=== PATIENT | female | born 1960 | race Caucasian/White ===

== ENCOUNTER 2016-06-16 10:11 | Inpatient (IN) | payer MEDICARE, MEDICAID ==
[2016-06-16] MEDS ORDERED: IPRATROPIUM/ALBUTEROL (0.5MG/3MG) NEB INH ONE (10:41)
--- NOTE | 2016-06-16 10:46 | Emergency Department Record ---
History of Present Illness - General Chief Complaint: Shortness of breath Stated Complaint: WHEEZY/COUGHING/FEVER Time Seen by Provider: 06/16/16 10:36 Source: Patient, RN notes reviewed Mode of Arrival: Wheelchair - History of Present Illness Initial Comments: patient states tuesday SOB and congestion and this started 4 days ago. Patient uses home oxygen 2 liters per minute. Yellow sputum. Patient states it hurts to cough. MD Complaint: Cough, Shortness of breath Onset/Timin -: Week(s) Severity: Severe Severity scale (1-10): 9 Consistency: Constant Improves With: Nothing Worsens With: Exertion, Lying flat Known History Of: COPD Context: Recent illness, Recent URI Associated Symptoms: Chest pain, Cough, Orthopnia, Pain with inspiration, Sputum production Treatments Prior to Arrival: None - Related Data Home Oxygen Therapy: Yes Home Oxygen Amount: 2 Liters Home Medications Medication Instructions Recorded Confirmed Last Taken Budesonide/Formoterol Fumarate 2 puff PO BID 12/13/13 06/16/16 02/17/15 [Symbicort 160-4.5 Mcg Inhaler] Roflumilast [Daliresp] 500 mcg PO DAILY 12/13/13 06/16/16 02/17/15 Albuterol Sulfate [Ventolin Hfa] 1 - 2 puff IH .EVERY 4-6 HOURS PRN 04/29/1412/2302/17/15 Beclomethasone Dipropionate [Qvar] 2 puff IH BID 04/29/14 06/16/16 02/17/15 Tiotropium Dana [Spiriva 1 inh IH DAILY 11/19/15 06/16/16 Unknown Respimat] Fluoxetine HCl [Fluoxetine HCl] 40 mg PO DAILY 06/16/16 06/16/16 Unknown Hydroxyzine Pamoate 25 mg PO DAILY 06/16/16 06/16/16 Unknown Previous Rx's Medication Instructions Recorded Epinephrine [Epipen] 0.3 mg IM .NOW PRN #1 syr 02/05/15 Allergies Allergy/AdvReac Type Severity Reaction Status Date / Time Sulfa (Sulfonamide Allergy Intermediate HIVES Verified 11/21/15 09:53 Antibiotics) codeine Allergy Mild VOMITING Verified 11/21/15 09:53 morphine Allergy Mild VOMITING Verified 11/21/15 09:53 aspirin [ASPIRIN] Allergy Unknown GI UPSET Verified 11/21/15 09:53 cephalexin monohydrate Allergy Unknown "BLEEDING Verified 11/21/15 09:53 [From KEFLEX] FROM EARS AND NOSE" Travel Screening - Travel/Exposure Within Last 30 Days Have you traveled within the last 30 days?: No Review of Systems Reviewed: No additional complaints except as noted below Constitutional: Reports: As per HPI. Denies: Chills, Fever, Malaise, Night sweats, Weakness, Weight change Eyes: Reports: As per HPI. Denies: Eye discharge, Eye pain, Photophobia, Vision change ENT: Reports: As per HPI. Denies: Congestion, Dental pain, Ear pain, Epistaxis , Hearing loss, Throat pain Respiratory: Reports: As per HPI, Cough, Dyspnea. Denies: Hemoptysis, Stridor, Wheezes Cardiovascular: Reports: As per HPI. Denies: Arrhythmia, Chest pain, Dyspnea on exertion, Edema, Murmurs, Orthopnea, Palpitations, Paroxysmal nocturnal dyspnea, Rheumatic Fever, Syncope Endocrine: Reports: As per HPI. Denies: Fatigue, Heat or cold intolerance, Polydipsia, Polyuria Gastrointestinal: Reports: As per HPI. Denies: Abdominal pain, Constipation, Diarrhea, Hematemesis, Hematochezia, Melena, Nausea, Vomiting Genitourinary: Reports: As per HPI. Denies: Abnormal menses, Discharge, Dyspareunia, Dysuria, Frequency, Hematuria, Incontinence, Retention, Urgency Musculoskeletal: Reports: As per HPI. Denies: Arthralgia, Back pain, Gout, Joint swelling, Myalgia, Neck pain Skin: Reports: As per HPI. Denies: Bruising, Change in color, Change in hair/ nails, Lesions, Pruritus, Rash Neurological: Reports: As per HPI. Denies: Abnormal gait, Confusion, Headache, Numbness, Paresthesias, Seizure, Tingling, Tremors, Vertigo, Weakness Psychiatric: Reports: As per HPI. Denies: Anxiety, Auditory hallucinations, Depression, Homicidal thoughts, Suicidal thoughts, Visual hallucinations Hematological/Lymphatic: Reports: As per HPI. Denies: Anemia, Blood Clots, Easy bleeding, Easy bruising, Swollen glands Past Medical History - SOCIAL HISTORY Smoking Status: Former smoker Alcohol Use: None Drug Use: None - RESPIRATORY Hx Respiratory Disorders: Yes Hx COPD: Yes - CARDIOVASCULAR Hx Cardio Disorders: No Comment:: "HIGH HEART RATE" - NEURO Hx Neuro Disorders: No - GI Hx GI Disorders: Yes Hx Reflux: Yes - Hx Genitourinary Disorders: No - ENDOCRINE Hx Endocrine Disorders: Yes Hx Diabetes: Yes - MUSCULOSKELETAL Hx Musculoskeletal Disorders: Yes Hx Arthritis: Yes (OSTEOARTHRITIS) Hx Fibromyalgia: Yes - PSYCH Hx Psych Problems: Yes Hx Anxiety: Yes Hx Depression: Yes - HEMATOLOGY/ONCOLOGY Hx Hematology/Oncology Disorders: No Family Medical History Any Significant Family History?: Yes Hx Cancer: Father, Grandparents *Cancer Comment: BONE CANCER WITH GRANDFATHER, LUNG CA WITH FATHER Physical Exam - General General Appearance: Alert, Oriented x3, Cooperative, Mild distress - Head Head exam: Normal inspection - Eye Eye exam: Normal appearance, PERRL Pupils: Normal accommodation - ENT ENT exam: Normal exam, Mucous membranes moist, Normal external ear exam, Normal orophraynx, TM's normal bilaterally Ear exam: Normal external inspection. negative: External canal tenderness Nasal Exam: Normal inspection. negative: Discharge, Sinus tenderness Mouth exam: Normal external inspection, Tongue normal Teeth exam: Normal inspection. negative: Dental caries Throat exam: Normal inspection. negative: Tonsillar erythema, Tonsillar exudate - Neck Neck exam: Normal inspection, Full ROM. negative: Tenderness - Respiratory Respiratory exam: Normal lung sounds bilaterally. negative: Respiratory distress - Cardiovascular Cardiovascular Exam: Regular rate, Normal rhythm, Normal heart sounds - GI/Abdominal GI/Abdominal exam: Soft, Normal bowel sounds. negative: Tenderness - Rectal Rectal exam: Deferred - exam: Deferred - Extremities Extremities exam: Normal inspection, Full ROM, Normal capillary refill. negative: Tenderness - Back Back exam: Reports: Normal inspection, Full ROM. Denies: Muscle spasm, Rash noted, Tenderness - Neurological Neurological exam: Alert, Normal gait, Oriented X3, Reflexes normal - Psychiatric Psychiatric exam: Normal affect, Normal mood - Skin Skin exam: Dry, Intact, Normal color, Warm Course Vital Signs 06/16/16 10:16 Temperature 98.0 F Pulse Rate 78 Respiratory 22 Rate Blood Pressure 131/77 Pulse Ox 96 - Reevaluation(s) Reevaluation #1: patient still sob and 3 word speech dyspnea and coughing 06/16/16 14:05 Reevaluation #2: 06/16/16 14:08 Reevaluation #3: discussed case with Fatmata and will admit 06/16/16 14:11 Medical Decision Making - Data Complexity MDM Data: Labs Ordered and/or Reviewed, X-Ray Ordered and/or Reviewed (chest xray neg) - Lab Data Result diagrams: 06/16/16 10:40 06/16/16 10:40 Disposition Clinical Impression: COPD with exacerbation, Bronchitis Decision to Admit: Admit from ER Condition: (2) Stable Forms: Patient Portal Access
[2016-06-16] MEDS ORDERED: 0.9 % SODIUM CHLORIDE 1000ML 1,000 ML IV ONE (10:48)
[2016-06-16] MEDS ORDERED: METHYLPREDNISOLONE PF 125MG/VIAL IVP ONE (10:53)
[2016-06-16 10:58] LABS: HEMATOCRIT 35.1 % (35.0-47.0); HEMOGLOBIN 10.6 gm/dl (11.6-16.0); MEAN CELL VOLUME 62.1 fl (81-97); MEAN CORPUSCULAR HGB CONC 30.2 g/dl (32-36); MEAN PLATELET VOLUME 8.9 fl (7.4-10.4); PLATELET COUNT 450 K/uL (130-400); RED BLOOD COUNT 5.65 M/uL (3.80-5.40); RED CELL DISTRIBUTION WIDTH 23.9 % (11.5-14.5)
[2016-06-16 11:06] LABS: MEAN CORPUSCULAR HEMOGLOBIN 18.7 pg (27-33); PLATELET ESTIMATE NORMAL (NORMAL)
[2016-06-16 11:07] LABS: ANISOCYTOSIS 2+; MICROCYTOSIS 1+
[2016-06-16 11:15] LABS: ANION GAP 13.6 (7-16); BLOOD UREA NITROGEN 11 mg/dL (7-17); CARBON DIOXIDE 25.4 mmol/L (22-30); CREATININE 0.7 mg/dL (0.52-1.04); EST GLOMERULAR FILTRATION RATE > 60 ml/min; GLUCOSE,RANDOM 93 mg/dL (70-110)
[2016-06-16] MEDS ORDERED: ALBUTEROL SULFATE (0.083%) 2.5 MG/3 ML NEB INH ONE (12:50)
[2016-06-16] MEDS ORDERED: AZITHROMYCIN 500 MG in 0.9 % SODIUM CHLORIDE 250ML 250 ML IVPB SCH (15:28)
[2016-06-16] MEDS ORDERED: ALBUTEROL SULFATE (0.083%) 2.5 MG/3 ML NEB INH PRN (15:28)
[2016-06-16] MEDS ORDERED: TRAMADOL HCL 50 MG TABLET PO PRN (16:00)
[2016-06-16] MEDS: ACETAMINOPHEN 500 MG TABLET PO SCH ×2 (16:35→22:30)
[2016-06-16] MEDS: GABAPENTIN 300 MG CAPSULE PO SCH ×2 (16:36→22:34)
[2016-06-16] MEDS: DICYCLOMINE HCL 10 MG CAPSULE PO SCH ×2 (16:36→22:32)
[2016-06-16] MEDS: PANTOPRAZOLE SODIUM 40 MG TABLET PO SCH (16:37)
[2016-06-16] MEDS: HYDROXYZINE PAMOATE 25 MG CAPSULE PO SCH ×3 (16:38→22:36)
[2016-06-16] MEDS: SUCRALFATE 1 G/10 ML UD PO SCH ×3 (16:39→22:32)
[2016-06-16] MEDS ORDERED: ONDANSETRON HCL IV 4 MG/2 ML VIAL IVP PRN (16:51)
--- NOTE | 2016-06-16 17:23 | History & Physical ---
History of Present Illness - Date of Service Date of Service for History & Physical: 06/17/16 - History of Present Illness Admitting Diagnosis: acute bronchitis. COPD exacerbation. hypoxia History of Present Illness: 55 yo female admitted for COPD exacerbation. PMHx of smoking (quit 8-9 years ago; uses 2 L's of NC 29/11), COPD (Follows with Dr. Mariee in [place]), IDDM, depression, anxiety, arthritis, neuropathy, fibromyalgia, obesity and tachycardia. Initially, patient was treated with Levaquin and steroids as outpatient for COPD with acute exacerbation on 05/27/16. Her CXR 05/27 was negative for acute process. Patient presented to our ER today after 4-5 days of worsening cough. Her cough is described as non productive. She states she's not able to bring up sputum. Aggravated by exertion and recent URI. Alleviated with IV steroid and a breathing treatment in the ER. Associated symptoms include n/v, diarrhea , sob, fever, chills and decreased appetite. Upon presentation to the ED, VSS. CBC and CMP unremarkable. CXR: negative. Patient started on IV steroids, 500 mg of IV Azithromycin, and Duo neb treatments Q 4 hours. Patient placed on telemetry and admitted for further medical management. Patient has a 20 year h/o smoking. She follows with extrusion operator, Dr. Mariee. Requires 2 L's of supplemental oxygen 29/11. Patient states she was admitted for similar upper respiratory symptoms this past summer. She denies any recent travel, changes to her medications or sick contacts. Denies hemoptysis, CP, lightheadedness, weakness, abdominal pain, change in bowel habits, unintentional weight loss, or dysuria. 06/17/16:lying in bed comfortably. states she feels much better than yesterday. ambulating her room. tolerated breakfast though not much of an appetite. felt feverish last night, though this has resolved. diarrhea, n/v resolved. denies any abdominal pain. continues to cough, no sputum production. no fever, chills , hemoptysis, weakness. PCP: Dr. Jordan Travel Screening - Travel/Exposure Within Last 30 Days Have you traveled within the last 30 days?: No - Travel/Exposure Within Last Year Have you traveled outside the [place] in the last year?: No - Additonal Travel Details Have you been exposed to anyone with a communicable illness?: No - Travel Symptoms Symptom Screening: None Review of Systems Constitutional: Reports: As per HPI. Denies: Chills, Fever, Malaise, Night sweats, Weakness, Weight change Eyes: Reports: As per HPI. Denies: Eye discharge, Eye pain, Photophobia, Vision change ENT: Reports: As per HPI. Denies: Congestion, Dental pain, Ear pain, Epistaxis , Hearing loss, Throat pain Respiratory: Reports: As per HPI. Denies: Cough, Dyspnea, Hemoptysis, Stridor, Wheezes Cardiovascular: Reports: As per HPI. Denies: Arrhythmia, Chest pain, Dyspnea on exertion, Edema, Murmurs, Orthopnea, Palpitations, Paroxysmal nocturnal dyspnea, Rheumatic Fever, Syncope Endocrine: Reports: As per HPI. Denies: Fatigue, Heat or cold intolerance, Polydipsia, Polyuria Gastrointestinal: Reports: As per HPI. Denies: Abdominal pain, Constipation, Diarrhea, Hematemesis, Hematochezia, Melena, Nausea, Vomiting Genitourinary: Reports: As per HPI. Denies: Abnormal menses, Discharge, Dyspareunia, Dysuria, Frequency, Hematuria, Incontinence, Retention, Urgency Musculoskeletal: Reports: As per HPI. Denies: Arthralgia, Back pain, Gout, Joint swelling, Myalgia, Neck pain Skin: Reports: As per HPI. Denies: Bruising, Change in color, Change in hair/ nails, Lesions, Pruritus, Rash Neurological: Reports: As per HPI. Denies: Abnormal gait, Confusion, Headache, Numbness, Paresthesias, Seizure, Tingling, Tremors, Vertigo, Weakness Psychiatric: Reports: As per HPI. Denies: Anxiety, Auditory hallucinations, Depression, Homicidal thoughts, Suicidal thoughts, Visual hallucinations Hematological/Lymphatic: Reports: As per HPI. Denies: Anemia, Blood Clots, Easy bleeding, Easy bruising, Swollen glands Past Medical History - SOCIAL HISTORY Smoking Status: Former smoker Alcohol Use: None Drug Use: None - RESPIRATORY Hx Respiratory Disorders: Yes Hx COPD: Yes - CARDIOVASCULAR Hx Cardio Disorders: No Comment:: "HIGH HEART RATE" - NEURO Hx Neuro Disorders: No - GI Hx GI Disorders: Yes Hx Reflux: Yes - Hx Genitourinary Disorders: No - ENDOCRINE Hx Endocrine Disorders: Yes Hx Diabetes: Yes - MUSCULOSKELETAL Hx Musculoskeletal Disorders: Yes Hx Arthritis: Yes (OSTEOARTHRITIS) Hx Fibromyalgia: Yes - PSYCH Hx Psych Problems: Yes Hx Anxiety: Yes Hx Depression: Yes - HEMATOLOGY/ONCOLOGY Hx Hematology/Oncology Disorders: No Family Medical History Any Significant Family History?: Yes Hx Cancer: Father, Grandparents *Cancer Comment: BONE CANCER WITH GRANDFATHER, LUNG CA WITH FATHER H&P Meds/Allergies - Allergies Allergies: Allergies Allergy/AdvReac Type Severity Reaction Status Date / Time Sulfa (Sulfonamide Allergy Intermediate HIVES Verified 11/21/15 09:53 Antibiotics) codeine Allergy Mild VOMITING Verified 11/21/15 09:53 morphine Allergy Mild VOMITING Verified 11/21/15 09:53 aspirin [ASPIRIN] Allergy Unknown GI UPSET Verified 11/21/15 09:53 cephalexin monohydrate Allergy Unknown "BLEEDING Verified 11/21/15 09:53 [From KEFLEX] FROM EARS AND NOSE" strawberry Allergy DIFFICULTY Verified 06/16/16 16:41 BREATHING venom-honey bee Allergy ANAPHYLAXIS Verified 06/16/16 16:41 venom-wasp Allergy ANAPHYLAXIS Verified 06/16/16 16:41 - Home Medications Home Medications Medication Instructions Recorded Confirmed Last Taken Budesonide/Formoterol Fumarate 2 puff PO BID 12/13/13 06/16/16 02/17/15 [Symbicort 160-4.5 Mcg Inhaler] Roflumilast [Daliresp] 500 mcg PO DAILY 12/13/13 06/16/16 02/17/15 Albuterol Sulfate [Ventolin Hfa] 1 - 2 puff IH .EVERY 4-6 HOURS PRN 04/29/1412/2302/17/15 Beclomethasone Dipropionate [Qvar] 2 puff IH BID 04/29/14 06/16/16 02/17/15 Tiotropium [place] [Spiriva 1 inh IH DAILY 11/19/15 06/16/16 Unknown Respimat] Dicyclomine HCl 20 mg PO QIDACHS 06/16/16 06/16/16 Unknown Diphenhydramine HCl [Benadryl] 25 mg PO QHS 06/16/16 06/16/16 Unknown Fluoxetine HCl [Fluoxetine HCl] 40 mg PO QHS 06/16/16 06/16/16 Unknown Hydroxyzine Pamoate 25 mg PO QID 06/16/16 06/16/16 Unknown Loratadine [Claritin] 10 mg PO QHS 06/16/16 06/16/16 Unknown Omeprazole [Omeprazole] 40 mg PO BIDAC 06/16/16 06/16/16 Unknown Verapamil HCl [Verapamil Sr] 120 mg PO QHS 06/16/16 06/16/16 Unknown Previous Rx's Medication Instructions Recorded Epinephrine [Epipen] 0.3 mg IM .NOW PRN #1 syr 02/05/15 - Active Medications Active Medications: Current Medications Acetaminophen (Tylenol 500mg Tab) 1,000 mg PO Q6H [facility] Last Admin: 06/16/16 16:35 Dose: 1,000 mg Albuterol Sulfate () 2.5 mg INH RESP.Q1H PRN PRN Reason: DIFFICULTY IN BREATHING Albuterol/Ipratropium (Duoneb) 3 ml INH RESP.Q4H.[facility] Dicyclomine HCl (Bentyl) 20 mg PO QIDACHS [facility] Last Admin: 06/16/16 16:36 Dose: 20 mg Diphenhydramine HCl (Benadryl Capsule) 25 mg PO QHS [facility] Enoxaparin Sodium (Lovenox) 40 mg SQ DAILY [facility] Fluoxetine HCl (Prozac) 40 mg PO QHS [facility] Gabapentin (Neurontin) 600 mg PO TID [facility] Last Admin: 06/16/16 16:36 Dose: 600 mg Guaifenesin (Mucinex) 1,200 mg PO BID [facility] Hydroxyzine Pamoate (Vistaril) 25 mg PO QID [facility] Last Admin: 06/16/16 16:38 Dose: 25 mg Azithromycin 500 mg/ Sodium (Chloride) 250 mls @ 250 mls/hr IVPB Q24H [facility] Stop: 06/21/16 15:29 Last Admin: 06/16/16 16:33 Dose: 250 mls/hr Insulin Detemir (Levemir Flextouch) 5 unit SQ QHS [facility] Loratadine (Claritin) 10 mg PO QHS [facility] Meloxicam (Mobic) 7.5 mg PO BID [facility] Methylprednisolone Sodium Succinate (Solu-Medrol) 60 mg IVP Q8HR [facility] Montelukast Sodium (Singulair) 10 mg PO DAILY [facility] Ondansetron HCl (Zofran) 4 mg IVP Q6H PRN PRN Reason: NAUSEA Last Admin: 06/16/16 17:01 Dose: 4 mg Pantoprazole Sodium (Protonix) 40 mg PO BIDAC [facility] Last Admin: 06/16/16 16:37 Dose: 40 mg Patient Own Med: Roflumilast ( Daliresp) 500 Mcg 1 each PO DAILY [facility] Patient Own Med: (Terbinafine 250 Mg) 1 each PO DAILY [facility] Simvastatin (Zocor) 10 mg PO QHS [facility] Sucralfate (Carafate) 1 g PO QID [facility] Last Admin: 06/16/16 17:09 Dose: Not Given Tramadol HCl (Ultram) 50 mg PO Q4H PRN PRN Reason: Analgesia Trazodone HCl (Desyrel) 150 mg PO QHS [facility] Verapamil HCl (Calan Sr) 120 mg PO QHS [facility] Physical Exam - Vital Signs Vital Signs: Vital Signs - Last 24 Hrs Temp Pulse Pulse Resp BP BP Pulse Ox 06/16/16 15:38 98.5 F 66 23 120/59 97 06/16/16 15:34 98.5 F 66 16 126/80 97 - General General Appearance: Alert, Oriented x3, Cooperative, No acute distress - Head Head exam: Normal inspection - Eye Eye exam: Normal appearance, PERRL Pupils: Normal accommodation - ENT ENT exam: Normal exam, Mucous membranes moist, Normal external ear exam, Normal orophraynx, TM's normal bilaterally Ear exam: Normal external inspection. negative: External canal tenderness Nasal Exam: Normal inspection. negative: Discharge, Sinus tenderness Mouth exam: Normal external inspection, Tongue normal Teeth exam: Normal inspection. negative: Dental caries Throat exam: Normal inspection. negative: Tonsillar erythema, Tonsillar exudate - Neck Neck exam: Normal inspection, Full ROM. negative: Tenderness - Respiratory Respiratory exam: Normal lung sounds bilaterally. negative: Respiratory distress - Cardiovascular Cardiovascular Exam: Regular rate, Normal rhythm, Normal heart sounds - GI/Abdominal GI/Abdominal exam: Soft, Normal bowel sounds. negative: Tenderness - Rectal Rectal exam: Deferred - exam: Deferred - Extremities Extremities exam: Normal inspection, Full ROM, Normal capillary refill. negative: Tenderness - Back Back exam: Reports: Normal inspection, Full ROM. Denies: Muscle spasm, Rash noted, Tenderness - Neurological Neurological exam: Alert, Normal gait, Oriented X3, Reflexes normal - Psychiatric Psychiatric exam: Normal affect, Normal mood - Skin Skin exam: Dry, Intact, Normal color, Warm Results - Labs Result Diagrams: 06/16/16 10:40 06/16/16 10:40 VTE H&P Assessment - Risk for VTE Risk for VTE: Yes Risk Level: Moderate Risk Assessment Date: 06/16/16 Risk Assessment Time: 16:00 VTE Orders Placed or Will Be Placed: Yes Plan - Inpatient Certification Inpatient Certification: Admit to inpatient care: Based on my medical assessment, after consideration of patient's risk factors (age, co-morbidities and patient presenting symptoms and acuity), I expect that this patient will remain in the hospital greater than or equal to two midnights and that the services needed warrant inpatient care because: Patient Risk Factors: [] Estimated length of stay: [] The patient may reasonably be expected to be discharged or transferred to a hospital within 96 hours after admission to [facility]. Services needed: [] Post hospital care (if known): [] I certify that my determination is in accordance with my understanding of Medicare requirements for reasonable and necessary inpatient services. - Detailed Diagnosis and Plan (1) COPD with exacerbation Current Visit: Yes Status: Acute Base Code: J44.1 - CHRONIC OBSTRUCTIVE PULMONARY DISEASE W (ACUTE) EXACERBATION Comment: 06/17/16: 56 yo female w/ history of COPD failed outpatient treatment for acute exacerbation. -CXR negative. -wbc normal, afebrile -continue IV solumedrol, Azithromycin -Duo neb treatment [id number] -mucinex 1200 mg BID -add tessalon perles -will monitor VS's closely (2) DVT prophylaxis Current Visit: No Status: Acute Base Code: [id number] - Comment: 06/17/16: moderate risk: weight, decreased mobility. lovenox 40 mg sq daily. (3) Diabetes mellitus type 2, insulin dependent Current Visit: No Status: Acute Base Code: E11.9 - TYPE 2 DIABETES MELLITUS WITHOUT COMPLICATIONS; Z79.4 - GIS CONSULTANT (CURRENT) USE OF INSULIN Comment: 06/17/16: Patient currently on Levemir 5units QHS - Patient will continue home medication - accu checks achqhs (4) Full code status Current Visit: No Status: Acute Base Code: Z78.9 - OTHER SPECIFIED HEALTH STATUS Comment: 06/17/16: Patient remains full code
[2016-06-16] MEDS: IPRATROPIUM/ALBUTEROL (0.5MG/3MG) NEB INH SCH ×2 (18:10→22:21)
[2016-06-16] MEDS: GUAIFENESIN 1,200 MG TABLET PO SCH ×2 (18:16→22:33)
[2016-06-16] MEDS ORDERED: LEVEMIR FLEXTOUCH 100 UNIT/ML INSULIN PEN SQ SCH (22:00)
[2016-06-16] MEDS ORDERED: TRAZODONE 50 MG TABLET PO SCH (22:00)
[2016-06-16] MEDS ORDERED: FLUOXETINE HCL 20 MG CAPSULE PO SCH (22:00)
[2016-06-16] MEDS ORDERED: SIMVASTATIN 10MG TABLET PO SCH (22:00)
[2016-06-16] MEDS ORDERED: VERAPAMIL ER 120 MG TABLET PO SCH (22:00)
[2016-06-16] MEDS ORDERED: LORATADINE 10 MG TABLET PO SCH (22:00)
[2016-06-16] MEDS ORDERED: DIPHENHYDRAMINE HCL 25 MG CAPSULE PO SCH (22:00)
[2016-06-16] MEDS: MELOXICAM 7.5 MG TABLET PO SCH (22:33)
[2016-06-16] MEDS: METHYLPREDNISOLONE PF 125MG/VIAL IVP SCH (22:34)
[2016-06-17] MEDS: ACETAMINOPHEN 500 MG TABLET PO SCH ×2 (04:09→09:33)
[2016-06-17] MEDS: IPRATROPIUM/ALBUTEROL (0.5MG/3MG) NEB INH SCH ×2 (05:56→10:14)
[2016-06-17] MEDS: DICYCLOMINE HCL 10 MG CAPSULE PO SCH ×2 (06:58→12:04)
[2016-06-17] MEDS: PANTOPRAZOLE SODIUM 40 MG TABLET PO SCH (06:58)
[2016-06-17] MEDS: METHYLPREDNISOLONE PF 125MG/VIAL IVP SCH (06:59)
--- NOTE | 2016-06-17 07:25 | RADIOLOGY REPORT ---
EXAM: CHEST, TWO VIEWS HISTORY: COUGH. TECHNIQUE: Frontal and lateral views of the chest were obtained. Comparison: 05/27/16 chest. FINDINGS: The heart size is normal. The lungs are clear. No pneumothorax. IMPRESSION: NEGATIVE CHEST EXAMINATION. JOB NUMBER: [id number]
[2016-06-17] MEDS: SUCRALFATE 1 G/10 ML UD PO SCH (09:33)
[2016-06-17] MEDS: GABAPENTIN 300 MG CAPSULE PO SCH (09:34)
[2016-06-17] MEDS: MELOXICAM 7.5 MG TABLET PO SCH (09:34)
[2016-06-17] MEDS: GUAIFENESIN 1,200 MG TABLET PO SCH (09:35)
[2016-06-17] MEDS: HYDROXYZINE PAMOATE 25 MG CAPSULE PO SCH (09:36)
[2016-06-17] MEDS ORDERED: ROFLUMILAST 500 MCG PO SCH (10:00)
[2016-06-17] MEDS ORDERED: TERBINAFINE 250 MG PO SCH (10:00)
[2016-06-17] MEDS ORDERED: MONTELUKAST SODIUM 10MG TABLET PO SCH (10:00)
[2016-06-17] MEDS ORDERED: ENOXAPARIN 40 MG/0.4 ML SYR SQ SCH (10:00)
[2016-06-17] MEDS ORDERED: BENZONATATE 100 MG CAPSULE PO PRN (10:20)
--- NOTE | 2016-06-17 10:23 | Discharge Summary ---
Providers Discharge Summary Date: 06/17/16 Date of admission: 06/16/16 15:14 Expected Date of Discharge: 06/17/16 Attending physician: BENNY PETE Primary care physician: BENNY PETE Physical Exam - Vital Signs Vital Signs: Vital Signs - Last 24 Hrs Temp Pulse Pulse Pulse Resp BP BP 06/17/16 09:34 97.8 F 71 20 133/69 06/17/16 09:28 98.6 F 129/71 06/17/16 08:42 67 20 06/17/16 06:07 88 20 06/17/16 06:06 84 20 06/17/16 05:32 98.6 F 67 21 129/71 06/17/16 01:33 98.4 F 69 21 128/70 06/16/16 22:25 88 20 06/16/16 22:22 90 20 06/16/16 22:00 97.4 F L 71 21 134/81 06/16/16 18:54 16 06/16/16 18:11 85 16 06/16/16 18:00 99.2 F 69 14 103/61 06/16/16 15:38 98.5 F 66 23 120/59 06/16/16 15:34 98.5 F 66 16 126/80 Pulse Ox 06/17/16 09:34 95 06/17/16 09:28 06/17/16 08:42 06/17/16 06:07 06/17/16 06:06 95 06/17/16 05:32 97 06/17/16 01:33 96 06/16/16 22:25 97 06/16/16 22:22 97 06/16/16 22:00 98 06/16/16 18:54 06/16/16 18:11 95 06/16/16 18:00 97 06/16/16 15:38 97 06/16/16 15:34 97 - General General Appearance: Alert, Oriented x3, Cooperative, No acute distress - Head Head exam: Normal inspection - Eye Eye exam: Normal appearance, PERRL Pupils: Normal accommodation - ENT ENT exam: Normal exam, Mucous membranes moist, Normal external ear exam, Normal orophraynx, TM's normal bilaterally Ear exam: Normal external inspection. negative: External canal tenderness Nasal Exam: Normal inspection. negative: Discharge, Sinus tenderness Mouth exam: Normal external inspection, Tongue normal Teeth exam: Normal inspection. negative: Dental caries Throat exam: Normal inspection. negative: Tonsillar erythema, Tonsillar exudate - Neck Neck exam: Normal inspection, Full ROM. negative: Tenderness - Respiratory Respiratory exam: Normal lung sounds bilaterally (breath sounds normalizing). negative: Respiratory distress - Cardiovascular Cardiovascular Exam: Regular rate, Normal rhythm, Normal heart sounds - GI/Abdominal GI/Abdominal exam: Soft, Normal bowel sounds. negative: Tenderness - Rectal Rectal exam: Deferred - exam: Deferred - Extremities Extremities exam: Normal inspection, Full ROM, Normal capillary refill. negative: Tenderness - Back Back exam: Reports: Normal inspection, Full ROM. Denies: Muscle spasm, Rash noted, Tenderness - Neurological Neurological exam: Alert, Normal gait, Oriented X3, Reflexes normal - Psychiatric Psychiatric exam: Normal affect, Normal mood - Skin Skin exam: Dry, Intact, Normal color, Warm Hospitalization - Hospitalization Admission Diagnosis: acute bronchitis. COPD exacerbation. hypoxia - Problem List/Discharge Diagnosis (1) COPD with exacerbation Current Visit: Yes Status: Acute Base Code: J44.1 - CHRONIC OBSTRUCTIVE PULMONARY DISEASE W (ACUTE) EXACERBATION Comment: 06/17/16: 56 yo female w/ history of COPD failed outpatient treatment for acute exacerbation. Per patient, she's feeling back to baseline. -CXR negative. -wbc normal, afebrile -continue steroid taper- script given to patient. -complete Azithromycin (500 mg PO x 4 additional days- sent to pharmacy). Initially sent script for 3 count, however she will not be receiving this prior to d/c. I contact pharmacy and they adjusted pill count to 4. -Duo neb treatment [id number] -mucinex 1200 mg BID -fiona mendes sent to pharmacy to help with cough - follow up with me on 06/24/16 @1500. Return in the meantime regarding any new or worsening symptoms. (2) Diabetes mellitus type 2, insulin dependent Current Visit: No Status: Acute Base Code: E11.9 - TYPE 2 DIABETES MELLITUS WITHOUT COMPLICATIONS; Z79.4 - STRATEGIC PLANNER (CURRENT) USE OF INSULIN Comment: 06/17/16: Continue home medications. (3) DNR (do not resuscitate) Current Visit: Yes Status: Acute Base Code: Z66 - DO NOT RESUSCITATE Comment: 06/17/16: patient made DNR during her stay. - Hospitalization Course Disposition: Home, Self-Care Hospital Course: 55 yo female admitted for COPD exacerbation. PMHx of smoking (quit 8-9 years ago; uses 2 L's of NC 29/11), COPD (Follows with Dr. Mariee in [place]), IDDM, depression, anxiety, arthritis, neuropathy, fibromyalgia, obesity and tachycardia. Initially, patient was treated with Levaquin and steroids as outpatient for COPD with acute exacerbation on 05/27/16. Her CXR 05/27 was negative for acute process. Patient presented to our ER today after 4-5 days of worsening cough. Her cough is described as non productive. She states she's not able to bring up sputum. Aggravated by exertion and recent URI. Alleviated with IV steroid and a breathing treatment in the ER. Associated symptoms include n/v, diarrhea , sob, fever, chills and decreased appetite. Upon presentation to the ED, VSS. CBC and CMP unremarkable. CXR: negative. Patient started on IV steroids, 500 mg of IV Azithromycin, and Duo neb treatments Q 4 hours. Patient placed on telemetry and admitted for further medical management. Patient has a 20 year h/o smoking. She follows with call box wirer, Dr. Mariee. Requires 2 L's of supplemental oxygen 29/11. Patient states she was admitted for similar upper respiratory symptoms this past summer. She denies any recent travel, changes to her medications or sick contacts. Denies hemoptysis, CP, lightheadedness, weakness, abdominal pain, change in bowel habits, unintentional weight loss, or dysuria. 06/17/16:lying in bed comfortably. states she feels much better than yesterday. ambulating her room. tolerated breakfast though not much of an appetite. felt feverish last night, though this has resolved. diarrhea, n/v resolved. denies any abdominal pain. continues to cough, no sputum production. no fever, chills , hemoptysis, weakness. PCP: Dr. Pete Abnormal Labs: Abnormal Lab Results 06/16/16 06/17/16 Range/Units 22:28 07:30 POC Glucose 238 H 137 H (70-110) mg/dL Condition at Discharge: (2) Stable Discharge Medications - Discharge Medications Prescriptions: Azithromycin 500 mg PO DAILY #3 tablet Fluconazole [Diflucan] 150 mg PO ONCE #1 tab Oxymetazoline HCl [Nasal [place] Sinus] 30 ml NS ASDIR PRN #1 bottle PRN Reason: Dry Nasal Pas[place] Prednisone [Prednisone 20Mg] 20 mg PO DAILY #12 tab Benzonatate [Tessalon Perles] 100 mg PO TID PRN #30 capsule PRN Reason: Cough Ondansetron [Zofran Odt] 4 mg PO Q8H PRN #20 tab.rapdis PRN Reason: Nausea Home Medications: Ambulatory Orders Budesonide/Formoterol Fumarate [Symbicort 160-4.5 Mcg Inhaler] 2 puff PO BID 11/19 [Last Taken 02/17/15] Roflumilast [Daliresp] 500 mcg PO DAILY 12/13/13 [Last Taken 02/17/15] Albuterol Sulfate [Ventolin Hfa] 1 - 2 puff IH .EVERY 4-6 HOURS PRN 04/29/14 [ Last Taken 02/17/15] Beclomethasone Dipropionate [Qvar] 2 puff IH BID 04/29/14 [Last Taken 02/17/15] Epinephrine [Epipen] 0.3 mg IM .NOW PRN #1 syr 02/05/15 [Last Taken 02/15/15] Tiotropium [place] [Spiriva Respimat] 1 inh IH DAILY 11/19/15 [Last Taken Unknown] Dicyclomine HCl 20 mg PO QIDACHS 06/16/16 [Last Taken Unknown] Diphenhydramine HCl [Benadryl] 25 mg PO QHS 06/16/16 [Last Taken Unknown] Fluoxetine HCl 40 mg PO QHS 06/16/16 [Last Taken Unknown] Hydroxyzine Pamoate 25 mg PO QID 06/16/16 [Last Taken Unknown] Loratadine [Claritin] 10 mg PO QHS 06/16/16 [Last Taken Unknown] Omeprazole 40 mg PO BIDAC 06/16/16 [Last Taken Unknown] Verapamil HCl [Verapamil Sr] 120 mg PO QHS 06/16/16 [Last Taken Unknown] Azithromycin 500 mg PO DAILY #3 tablet 06/17/16 [Last Taken Unknown] Benzonatate [Tessalon Perles] 100 mg PO TID PRN #30 capsule 06/17/16 [Last Taken Unknown] Fluconazole [Diflucan] 150 mg PO ONCE #1 tab 02/09/17 [Last Taken Unknown] Ondansetron [Zofran Odt] 4 mg PO Q8H PRN #20 tab.rapdis 06/17/16 [Last Taken Unknown] Oxymetazoline HCl [Nasal [place] Sinus] 30 ml NS ASDIR PRN #1 bottle 06/17/16 [ Last Taken Unknown] Prednisone [Prednisone 20Mg] 20 mg PO DAILY #12 tab 06/17/16 [Last Taken Unknown ] Discharge Plan - Discharge Instructions Activity at Discharge: Increase Activity as Tolerated Diet at Discharge: Regular Diet, Diabetic Diet Instructions: Diabetes Mellitus Type 2 in Adults (DC), Acute Bronchitis (DC), Chronic Obstructive Pulmonary Disease (DC) Additional Instructions: -complete steroid taper, then transition back to usual prednisone dose. -complete Azithromycin as prescribed. Diflucan sent to pharm if needed. -Duo neb treatment [id number] -continue your COPD medications as prescribed by Dr. Mariee. -mucinex 1200 mg BID -fiona mendes sent to pharmacy to help with cough - follow up with me on 06/24/16 @1500. Return in the meantime regarding any new or worsening symptoms. 2 Activity: Increase Activity as Tolerated 2 Diet: Diabetic Diet 2 2 2 2
[2016-06-17] MEDS ORDERED: ACETAMINOPHEN 500 MG TABLET PO SCH (18:00)
== END 2016-06-17 14:05 | disposition home or self-care (01) | DRG 192 ==
LOC: ER 10:11 → MEDSURG 15:14
PROVIDERS: ADMIT Family Medicine; ATTEND Family Medicine
DX: J44.1 Chronic obstructive pulmonary disease with (acute) exacerbation (principal); M79.7 Fibromyalgia; E11.9 Type 2 diabetes mellitus without complications; Z78.9 Other specified health status; Z79.4 Long term (current) use of insulin; Z66 Do not resuscitate
CPT/HCPCS: 36416; 71020; 80048; 82948; 85027; 93041; 94640; 94760; 96374; 99220; 99285; J0456; J1650; J2405; J2930; J7050; J7613

== ENCOUNTER 2016-06-24 15:40 | Inpatient (IN) | payer MEDICARE, MEDICAID ==
[2016-06-24] MEDS ORDERED: IPRATROPIUM/ALBUTEROL (0.5MG/3MG) NEB INH ONE (16:24)
[2016-06-24] MEDS ORDERED: METHYLPREDNISOLONE PF 125MG/VIAL IVP ONE (16:24)
[2016-06-24 16:48] LABS: HEMATOCRIT 34.7 % (35.0-47.0); HEMOGLOBIN 10.6 gm/dl (11.6-16.0); MEAN CELL VOLUME 62.1 fl (81-97); MEAN CORPUSCULAR HGB CONC 30.5 g/dl (32-36); MEAN PLATELET VOLUME 8.6 fl (7.4-10.4); PLATELET COUNT 628 K/uL (130-400); RED BLOOD COUNT 5.59 M/uL (3.80-5.40); RED CELL DISTRIBUTION WIDTH 23.8 % (11.5-14.5); WHITE BLOOD COUNT W/O DIFF 14.3 K/uL (4.2-12.2)
[2016-06-24 16:50] LABS: MEAN CORPUSCULAR HEMOGLOBIN 18.9 pg (27-33)
[2016-06-24 17:00] LABS: ANION GAP 13.4 (7-16); ANISOCYTOSIS 2+; BLOOD UREA NITROGEN 12 mg/dL (7-17); CARBON DIOXIDE 25.6 mmol/L (22-30); CREATININE 0.7 mg/dL (0.52-1.04); EST GLOMERULAR FILTRATION RATE > 60 ml/min; GLUCOSE,RANDOM 112 mg/dL (70-110); HYPOCHROMIA 2+; PLATELET ESTIMATE INCREASED (NORMAL)
--- NOTE | 2016-06-24 17:09 | Emergency Department Record ---
History of Present Illness - General Chief Complaint: Shortness of breath Stated Complaint: PNEUMONIA,BRONCHITIS Time Seen by Provider: 06/24/16 16:12 Source: Patient Mode of Arrival: Wheelchair Limitations: No limitations - History of Present Illness Initial Comments: pt has increasing sob w productive cough. Complaint: Cough, Shortness of breath Onset/Timin -: Week(s) Radiation: Other Severity scale (1-10): 8 Quality: Aching Consistency: Intermittent Worsens With: Exertion, Lying flat Known History Of: COPD Context: Recent URI Associated Symptoms: Cough, Nausea/vomiting, Sputum production Treatments Prior to Arrival: Bronchodilator - Related Data Home Oxygen Therapy: Yes Home Oxygen Amount: 2 Liters Home Medications Medication Instructions Recorded Confirmed Last Taken Budesonide/Formoterol Fumarate 2 puff PO BID 12/13/13 06/16/16 02/17/15 [Symbicort 160-4.5 Mcg Inhaler] Roflumilast [Daliresp] 500 mcg PO DAILY 12/13/13 06/16/16 02/17/15 Albuterol Sulfate [Ventolin Hfa] 1 - 2 puff IH .EVERY 4-6 HOURS PRN 04/29/1412/2302/17/15 Beclomethasone Dipropionate [Qvar] 2 puff IH BID 04/29/14 06/16/16 02/17/15 Tiotropium [place] [Spiriva 1 inh IH DAILY 11/19/15 06/16/16 Unknown Respimat] Dicyclomine HCl 20 mg PO QIDACHS 06/16/16 06/16/16 Unknown Diphenhydramine HCl [Benadryl] 25 mg PO QHS 06/16/16 06/16/16 Unknown Fluoxetine HCl 40 mg PO QHS 06/16/16 06/16/16 Unknown Hydroxyzine Pamoate 25 mg PO QID 06/16/16 06/16/16 Unknown Loratadine [Claritin] 10 mg PO QHS 06/16/16 06/16/16 Unknown Omeprazole 40 mg PO BIDAC 06/16/16 06/16/16 Unknown Verapamil HCl [Verapamil Sr] 120 mg PO QHS 06/16/16 06/16/16 Unknown Previous Rx's Medication Instructions Recorded Epinephrine [Epipen] 0.3 mg IM .NOW PRN #1 syr 02/05/15 Benzonatate [Tessalon Perles] 100 mg PO TID PRN #30 capsule 06/17/16 Fluconazole [Diflucan] 150 mg PO ONCE #1 tab 06/17/16 Ondansetron [Zofran Odt] 4 mg PO Q8H PRN #20 tab.rapdis 06/17/16 Allergies Allergy/AdvReac Type Severity Reaction Status Date / Time Sulfa (Sulfonamide Allergy Intermediate HIVES Verified 06/24/16 15:54 Antibiotics) codeine Allergy Mild VOMITING Verified 06/24/16 15:54 morphine Allergy Mild VOMITING Verified 06/24/16 15:54 aspirin [ASPIRIN] Allergy Unknown GI UPSET Verified 06/24/16 15:54 cephalexin monohydrate Allergy Unknown "BLEEDING Verified 06/24/16 15:54 [From KEFLEX] FROM EARS AND NOSE" strawberry Allergy DIFFICULTY Verified 06/24/16 15:54 BREATHING venom-honey bee Allergy ANAPHYLAXIS Verified 06/24/16 15:54 venom-wasp Allergy ANAPHYLAXIS Verified 06/24/16 15:54 Travel Screening - Travel/Exposure Within Last 30 Days Have you traveled within the last 30 days?: No - Travel Symptoms Symptom Screening: None Review of Systems Reviewed: No additional complaints except as noted below Constitutional: Reports: As per HPI. Denies: Chills, Fever, Malaise, Night sweats, Weakness, Weight change Eyes: Reports: As per HPI. Denies: Eye discharge, Eye pain, Photophobia, Vision change ENT: Reports: As per HPI. Denies: Congestion, Dental pain, Ear pain, Epistaxis , Hearing loss, Throat pain Respiratory: Reports: As per HPI. Denies: Cough, Dyspnea, Hemoptysis, Stridor, Wheezes Cardiovascular: Reports: As per HPI. Denies: Arrhythmia, Chest pain, Dyspnea on exertion, Edema, Murmurs, Orthopnea, Palpitations, Paroxysmal nocturnal dyspnea, Rheumatic Fever, Syncope Endocrine: Reports: As per HPI. Denies: Fatigue, Heat or cold intolerance, Polydipsia, Polyuria Gastrointestinal: Reports: As per HPI. Denies: Abdominal pain, Constipation, Diarrhea, Hematemesis, Hematochezia, Melena, Nausea, Vomiting Genitourinary: Reports: As per HPI. Denies: Abnormal menses, Discharge, Dyspareunia, Dysuria, Frequency, Hematuria, Incontinence, Retention, Urgency Musculoskeletal: Reports: As per HPI. Denies: Arthralgia, Back pain, Gout, Joint swelling, Myalgia, Neck pain Skin: Reports: As per HPI. Denies: Bruising, Change in color, Change in hair/ nails, Lesions, Pruritus, Rash Neurological: Reports: As per HPI. Denies: Abnormal gait, Confusion, Headache, Numbness, Paresthesias, Seizure, Tingling, Tremors, Vertigo, Weakness Psychiatric: Reports: As per HPI. Denies: Anxiety, Auditory hallucinations, Depression, Homicidal thoughts, Suicidal thoughts, Visual hallucinations Hematological/Lymphatic: Reports: As per HPI. Denies: Anemia, Blood Clots, Easy bleeding, Easy bruising, Swollen glands Past Medical History - SOCIAL HISTORY Smoking Status: Former smoker - RESPIRATORY Hx Respiratory Disorders: Yes Hx COPD: Yes - CARDIOVASCULAR Hx Cardio Disorders: No Comment:: "HIGH HEART RATE" - NEURO Hx Neuro Disorders: No - GI Hx GI Disorders: Yes Hx Reflux: Yes - Hx Genitourinary Disorders: No - ENDOCRINE Hx Endocrine Disorders: Yes Hx Diabetes: Yes - MUSCULOSKELETAL Hx Musculoskeletal Disorders: Yes Hx Arthritis: Yes (OSTEOARTHRITIS) Hx Fibromyalgia: Yes - PSYCH Hx Psych Problems: Yes Hx Anxiety: Yes Hx Depression: Yes - HEMATOLOGY/ONCOLOGY Hx Hematology/Oncology Disorders: No Family Medical History Any Significant Family History?: Yes Hx Cancer: Father, Grandparents *Cancer Comment: BONE CANCER WITH GRANDFATHER, LUNG CA WITH FATHER Physical Exam - General General Appearance: Alert, Oriented x3, Cooperative, Mild distress - Head Head exam: Normal inspection - Eye Eye exam: Normal appearance, PERRL, EOMI Pupils: Normal accommodation - ENT ENT exam: Normal exam, Mucous membranes moist, Normal external ear exam, Normal orophraynx Ear exam: Normal external inspection. negative: External canal tenderness Nasal Exam: Normal inspection. negative: Discharge, Sinus tenderness Mouth exam: Normal external inspection, Tongue normal Teeth exam: Normal inspection. negative: Dental caries Throat exam: Normal inspection. negative: Tonsillar erythema, Tonsillar exudate - Neck Neck exam: Normal inspection, Full ROM. negative: Tenderness - Respiratory Respiratory exam: Respiratory distress, Wheezes - Cardiovascular Cardiovascular Exam: Regular rate, Normal rhythm, Normal heart sounds - GI/Abdominal GI/Abdominal exam: Soft, Normal bowel sounds. negative: Tenderness - Rectal Rectal exam: Deferred - exam: Deferred - Extremities Extremities exam: Normal inspection, Full ROM, Normal capillary refill. negative: Tenderness - Back Back exam: Reports: Normal inspection, Full ROM. Denies: Muscle spasm, Rash noted, Tenderness - Neurological Neurological exam: Alert, CN II-XII intact, Normal gait, Oriented X3 - Psychiatric Psychiatric exam: Normal affect, Normal mood - Skin Skin exam: Dry, Intact, Normal color, Warm Course Vital Signs 06/24/16 06/24/16 15:56 16:24 Temperature 98.8 F Pulse Rate 69 68 Respiratory 20 18 Rate Blood Pressure 122/71 Pulse Ox 99 97 Medical Decision Making - Management Options MDM Management: Additional Work-up Planned (e.g. ADM/Transfer/OP Study) - Data Complexity MDM Data: Labs Ordered and/or Reviewed, X-Ray Ordered and/or Reviewed - Lab Data Result diagrams: 06/24/16 16:36 06/24/16 16:36 Lab Results 06/24/16 06/24/16 06/24/16 Range/Units 16:36 16:36 16:36 WBC 14.3 H (4.2-12.2) K/uL RBC 5.59 H (3.80-5.40) M/uL Hgb 10.6 L (11.6-16.0) gm/dl Hct 34.7 L (35.0-47.0) % MCV 62.1 L (81-97) fl MCH 18.9 L (27-33) pg MCHC 30.5 L (32-36) g/dl RDW 23.8 H (11.5-14.5) % Plt Count 628 H (130-400) K/uL MPV 8.6 (7.4-10.4) fl Neutrophils % 89.0 H (47-80) % Band Neutrophils % 4.0 (0-5) % Lymphocytes % 4.0 L (16-45) % Monocytes % 3.0 (0-9) % Eosinophils % Not Reportable Basophils % Not Reportable Platelet Estimate Increased (NORMAL) Hypochromasia 2+ Anisocytosis 2+ D-Dimer 0.62 H (0-0.59) mg/L FEU Sodium 139 (136-145) mmol/L Potassium 4.7 (3.5-5.1) mmol/L Chloride 100 (98-107) mmol/L Carbon Dioxide 25.6 (22-30) mmol/L Anion Gap 13.4 (7-16) BUN 12 (7-17) mg/dL Creatinine 0.7 (0.52-1.04) mg/dL Estimated GFR > 60 ml/min Random Glucose 112 H (70-110) mg/dL Calcium 8.6 (8.5-10.1) mg/dL - Radiology Data Radiology results: Report reviewed, Image reviewed Disposition Disposition: Admit Clinical Impression: Pulmonary embolism Qualifiers: Pulmonary embolism type: other Chronicity: acute Acute cor pulmonale presence: without acute cor pulmonale Qualified Code(s): I26.99 - Other pulmonary embolism without acute cor pulmonale Disposition: Still a Patient at [facility] Decision to Admit: Admit from ER Decision to Admit Date: 06/24/16 Decision to Admit Time: 18:44 Forms: Patient Portal Access
[2016-06-24 17:13] LABS: TROPONIN I < 0.012 ng/mL (0.00-0.034)
[2016-06-24] MEDS ORDERED: ONDANSETRON HCL IV 4 MG/2 ML VIAL IVP ONE (17:21)
[2016-06-24] MEDS ORDERED: ACETAMINOPHEN 325 MG TAB PO ONE (18:02)
[2016-06-24] MEDS: APIXABAN 5MG TABLET PO SCH ×2 (18:59→22:15)
[2016-06-24] MEDS ORDERED: ONDANSETRON 4 MG ODT TABLET PO PRN (19:59)
[2016-06-24] MEDS ORDERED: SIMVASTATIN 20 MG TABLET PO SCH (19:59)
[2016-06-24] MEDS ORDERED: ACETAMINOPHEN 500 MG TABLET PO PRN (19:59)
[2016-06-24] MEDS: ALBUTEROL SULFATE (0.083%) 2.5 MG/3 ML NEB INH PRN (20:45)
[2016-06-24] MEDS ORDERED: Non-Formulary MISC (Sucralfate [Carafate] 1 GM) PO SCH (22:00)
[2016-06-24] MEDS ORDERED: TRAZODONE HCL 150 MG PO SCH (22:00)
[2016-06-24] MEDS ORDERED: VERAPAMIL HCL 120 MG PO SCH (22:00)
[2016-06-24] MEDS ORDERED: FLUOXETINE HCL 40 MG PO SCH (22:00)
[2016-06-24] MEDS ORDERED: GABAPENTIN 600 MG PO SCH (22:00)
[2016-06-24] MEDS: FLUOXETINE HCL 20 MG CAPSULE PO SCH (22:15)
[2016-06-24] MEDS: SUCRALFATE 1 G/10 ML UD PO SCH (22:15)
[2016-06-24] MEDS: DICYCLOMINE HCL 20 MG PO SCH (22:15)
[2016-06-24] MEDS: VERAPAMIL ER 120 MG TABLET PO SCH (22:15)
[2016-06-24] MEDS: GABAPENTIN 300 MG CAPSULE PO SCH (22:15)
[2016-06-24] MEDS: TRAZODONE 50 MG TABLET PO SCH (22:15)
[2016-06-24] MEDS: DIPHENHYDRAMINE HCL 25 MG CAPSULE PO SCH (22:16)
[2016-06-24] MEDS ORDERED: TRAMADOL HCL 50 MG TABLET PO PRN (22:17)
[2016-06-24] MEDS: TRAMADOL HCL 50 MG TABLET PO PRN (22:21)
[2016-06-24] MEDS: GUAIFENESIN 1,200 MG TABLET PO SCH ×2 (22:37→23:00)
[2016-06-24] MEDS: LEVEMIR FLEXTOUCH 100 UNIT/ML INSULIN PEN SQ SCH (22:38)
[2016-06-25] MEDS ORDERED: AL HYDROX/MAG HYDROX 30ML UD PO ONE (01:30)
[2016-06-25] MEDS: IPRATROPIUM/ALBUTEROL (0.5MG/3MG) NEB INH PRN ×4 (02:34→17:49)
[2016-06-25] MEDS: ALBUTEROL SULFATE (0.083%) 2.5 MG/3 ML NEB INH PRN ×2 (06:11→21:50)
[2016-06-25] MEDS: PANTOPRAZOLE SODIUM 40 MG TABLET PO SCH ×2 (06:33→16:06)
[2016-06-25] MEDS: TRAMADOL HCL 50 MG TABLET PO PRN ×3 (06:36→22:04)
[2016-06-25] MEDS ORDERED: Non-Formulary MISC (Omeprazole [Omeprazole] 40 MG) PO SCH (07:00)
--- NOTE | 2016-06-25 07:21 | CT ANGIOGRAM REPORT ---
EXAM: CTA OF THE CHEST HISTORY: ACUTE DIFFICULTY BREATHING, NONPRODUCTIVE COUGH FOR ONE MONTH, ELEVATED D-DIMER. TECHNIQUE: Contiguous axial images from the thoracic inlet to the upper abdomen were obtained after the uneventful intravenous administration of 100 ml of Omnipaque 350. Sagittal and and coronal two dimensional reformatted images were obtained for better anatomic delineation. Comparison: Chest x-ray 06/16/16. FINDINGS: The lungs are clear. Minimal mucous plugging in the basal segmental branches of the left lower lobe. The heart is mildly enlarged with trace pericardial effusion measuring 4 mm in thickness. Severe coronary artery calcification. No enlarged lymph nodes in the thorax. The pulmonary arteries are well opacified. There is moderate beam hardening artifact. There is extensive filling defect in the posterior basal segmental branch of the left lower lobe pulmonary artery extending to the subsegmental branches. No evidence of right heart strain. The upper abdomen is unremarkable. Partially healed fracture of the posterior left eleventh rib. No lytic or blastic lesions. IMPRESSION: 1. PULMONARY EMBOLISM INVOLVING THE POSTEROBASAL SEGMENTAL BRANCH OF THE LEFT LOWER LOBE PULMONARY ARTERY WITH RELATIVELY SMALL CLOT BURDEN. NO RIGHT HEART STRAIN. 2. CARDIOMEGALY WITH SEVERE CORONARY ARTERY CALCIFICATION. JOB NUMBER: [id number] MTDD
[2016-06-25] MEDS: GUAIFENESIN 1,200 MG TABLET PO SCH ×3 (08:16→22:03)
[2016-06-25] MEDS: SUCRALFATE 1 G/10 ML UD PO SCH ×5 (08:17→21:59)
[2016-06-25] MEDS: VERAPAMIL ER 120 MG TABLET PO SCH ×2 (08:17→09:28)
[2016-06-25] MEDS: GABAPENTIN 300 MG CAPSULE PO SCH ×4 (08:17→22:03)
[2016-06-25] MEDS: DICYCLOMINE HCL 10 MG CAPSULE PO SCH ×4 (09:27→22:00)
[2016-06-25] MEDS: DICYCLOMINE HCL 20 MG PO SCH (09:30)
[2016-06-25] MEDS: SODIUM CHLORIDE 7% FOR INHALATION 4 ML NEB INH PRN ×3 (10:56→17:51)
[2016-06-25] MEDS: APIXABAN 5MG TABLET PO SCH ×2 (11:44→22:03)
[2016-06-25] MEDS: METHYLPREDNISOLONE PF 125MG/VIAL IVP SCH (11:44)
--- NOTE | 2016-06-25 13:00 | History & Physical ---
History of Present Illness - Date of Service Date of Service for History & Physical: 06/25/16 - History of Present Illness Admitting Diagnosis: pulmonary embolism, copd History of Present Illness: 55 yo female admitted for PE. PMHx of smoking (quit 8-9 years ago; uses 2 L's of NC 29/11), COPD (Follows with Dr. Mariee in [place]), IDDM, depression, anxiety, arthritis, neuropathy, fibromyalgia, obesity and tachycardia. Initially, patient was treated with Levaquin and steroids as outpatient for COPD with acute exacerbation on 05/27/16 and then rocephin and azitho on 06/16/16. Her CXR 05/27 was negative for acute process however CT done on 06/24 showed PE. Patient placed on telemetry and admitted for further medical management after starting eliquis 10mg BID. Patient has a 20 year h/o smoking. She follows with viticulturist, Dr. Mariee. Requires 2-3 L's of supplemental oxygen 29/11. She denies any recent travel, changes to her medications or sick contacts. Denies hemoptysis, CP, lightheadedness, weakness, abdominal pain, change in bowel habits, unintentional weight loss, or dysuria. PCP: Dr. Jordan Travel Screening - Travel/Exposure Within Last 30 Days Have you traveled within the last 30 days?: No - Travel/Exposure Within Last Year Have you traveled outside the [place] in the last year?: No - Additonal Travel Details Have you been exposed to anyone with a communicable illness?: No - Travel Symptoms Symptom Screening: Fatigue Review of Systems Constitutional: Reports: As per HPI. Denies: Chills, Fever, Malaise, Night sweats, Weakness, Weight change Eyes: Reports: As per HPI. Denies: Eye discharge, Eye pain, Photophobia, Vision change ENT: Reports: As per HPI. Denies: Congestion, Dental pain, Ear pain, Epistaxis , Hearing loss, Throat pain Respiratory: Reports: As per HPI. Denies: Cough, Dyspnea, Hemoptysis, Stridor, Wheezes Cardiovascular: Reports: As per HPI. Denies: Arrhythmia, Chest pain, Dyspnea on exertion, Edema, Murmurs, Orthopnea, Palpitations, Paroxysmal nocturnal dyspnea, Rheumatic Fever, Syncope Endocrine: Reports: As per HPI. Denies: Fatigue, Heat or cold intolerance, Polydipsia, Polyuria Gastrointestinal: Reports: As per HPI. Denies: Abdominal pain, Constipation, Diarrhea, Hematemesis, Hematochezia, Melena, Nausea, Vomiting Genitourinary: Reports: As per HPI. Denies: Abnormal menses, Discharge, Dyspareunia, Dysuria, Frequency, Hematuria, Incontinence, Retention, Urgency Musculoskeletal: Reports: As per HPI. Denies: Arthralgia, Back pain, Gout, Joint swelling, Myalgia, Neck pain Skin: Reports: As per HPI. Denies: Bruising, Change in color, Change in hair/ nails, Lesions, Pruritus, Rash Neurological: Reports: As per HPI. Denies: Abnormal gait, Confusion, Headache, Numbness, Paresthesias, Seizure, Tingling, Tremors, Vertigo, Weakness Psychiatric: Reports: As per HPI. Denies: Anxiety, Auditory hallucinations, Depression, Homicidal thoughts, Suicidal thoughts, Visual hallucinations Hematological/Lymphatic: Reports: As per HPI. Denies: Anemia, Blood Clots, Easy bleeding, Easy bruising, Swollen glands Past Medical History - SOCIAL HISTORY Smoking Status: Former smoker Alcohol Use: None Drug Use: None - RESPIRATORY Hx Respiratory Disorders: Yes Hx COPD: Yes - CARDIOVASCULAR Hx Cardio Disorders: No Comment:: "HIGH HEART RATE" - NEURO Hx Neuro Disorders: No - GI Hx GI Disorders: Yes Hx Reflux: Yes - Hx Genitourinary Disorders: No - ENDOCRINE Hx Endocrine Disorders: Yes Hx Diabetes: Yes - MUSCULOSKELETAL Hx Musculoskeletal Disorders: Yes Hx Arthritis: Yes (OSTEOARTHRITIS) Hx Fibromyalgia: Yes - PSYCH Hx Psych Problems: Yes Hx Anxiety: Yes Hx Depression: Yes - HEMATOLOGY/ONCOLOGY Hx Hematology/Oncology Disorders: No Family Medical History Any Significant Family History?: Yes Hx Cancer: Father, Grandparents *Cancer Comment: BONE CANCER WITH GRANDFATHER, LUNG CA WITH FATHER H&P Meds/Allergies - Allergies Allergies: Allergies Allergy/AdvReac Type Severity Reaction Status Date / Time Sulfa (Sulfonamide Allergy Intermediate HIVES Verified 06/24/16 15:54 Antibiotics) codeine Allergy Mild VOMITING Verified 06/24/16 15:54 morphine Allergy Mild VOMITING Verified 06/24/16 15:54 aspirin [ASPIRIN] Allergy Unknown GI UPSET Verified 06/24/16 15:54 cephalexin monohydrate Allergy Unknown "BLEEDING Verified 06/24/16 15:54 [From KEFLEX] FROM EARS AND NOSE" strawberry Allergy DIFFICULTY Verified 06/24/16 15:54 BREATHING venom-honey bee Allergy ANAPHYLAXIS Verified 06/24/16 15:54 venom-wasp Allergy ANAPHYLAXIS Verified 06/24/16 15:54 - Home Medications Home Medications Medication Instructions Recorded Confirmed Last Taken Budesonide/Formoterol Fumarate 2 puff PO BID 12/13/13 06/24/16 06/24/16 [Symbicort 160-4.5 Mcg Inhaler] Roflumilast [Daliresp] 500 mcg PO DAILY 12/13/13 06/24/16 06/24/16 Albuterol Sulfate [Ventolin Hfa] 1 - 2 puff IH .EVERY 4-6 HOURS PRN 04/29/1402/17/15 Beclomethasone Dipropionate [Qvar] 2 puff IH BID 04/29/14 06/24/16 06/24/16 Tiotropium [place] [Spiriva 1 inh IH DAILY 11/19/15 06/24/16 06/24/16 Respimat] Dicyclomine HCl 20 mg PO QIDACHS 06/16/16 06/24/16 06/24/16 Diphenhydramine HCl [Benadryl] 25 mg PO QHS 06/16/16 06/24/16 06/23/16 Fluoxetine HCl 40 mg PO QHS 06/16/16 06/24/16 06/23/16 Hydroxyzine Pamoate 25 mg PO QID 06/16/16 06/24/16 06/24/16 Loratadine [Claritin] 10 mg PO DAILY 06/16/16 06/24/16 06/24/16 Omeprazole 40 mg PO BIDAC 06/16/16 06/24/16 06/24/16 Verapamil HCl [Verapamil Sr] 120 mg PO QHS 06/16/16 06/24/16 06/23/16 120 mg Previous Rx's Medication Instructions Recorded Epinephrine [Epipen] 0.3 mg IM .NOW PRN #1 syr 02/05/15 Benzonatate [Tessalon Perles] 100 mg PO TID PRN #30 capsule 06/17/16 Fluconazole [Diflucan] 150 mg PO ONCE #1 tab 06/17/16 Ondansetron [Zofran Odt] 4 mg PO Q8H PRN #20 tab.rapdis 06/17/16 Acetaminophen [Tylenol 500Mg Tab] 1,000 mg PO Q6H PRN #0 tablet 06/25/16 Albuterol Sulfate 0.083% [Neb] 2.5 mg INH RESP.Q4H PRN #0 06/25/16 nebulization solution Apixaban [Eliquis] 5 mg PO BID #60 tablet 06/25/16 Fluoxetine HCl [Prozac] 40 mg PO QAM #60 capsule 06/25/16 Fluticasone/Salmeterol 500/50 1 puff INH RESP.Q12H #1 disk 06/25/16 [Advair 500/50] Gabapentin [Neurontin] 600 mg PO TID #180 capsule 06/25/16 Levofloxacin [Levaquin Tab] 500 mg PO DAILY #5 tab 06/25/16 Prednisone [Prednisone 20Mg] 20 mg PO TID #30 tab 06/25/16 Sodium Chloride 7% For INH 4 ml INH Q4H PRN #0 vial.neb 06/25/16 [Hyper-Grayson] Terbinafine HCl [Lamisil] 250 mg PO DAILY #30 tablet 06/25/16 Tiotropium [place] [Spiriva] 1 cap INH RESP.DAILY #1 cap.w.dev 06/25/16 Trazodone HCl [Desyrel] 150 mg PO QHS tab 06/25/16 Verapamil HCl [Calan Sr] 120 mg PO QHS tablet.er 06/25/16 - Active Medications Active Medications: Current Medications Acetaminophen (Tylenol 500mg Tab) 1,000 mg PO Q6H PRN PRN Reason: PAIN/TEMP Last Admin: 06/25/16 01:36 Dose: 1,000 mg Albuterol Sulfate () 2.5 mg INH RESP.Q4H PRN PRN Reason: DIFFICULTY IN BREATHING Last Admin: 06/25/16 06:11 Dose: 2.5 mg Albuterol/Ipratropium (Duoneb) 3 ml INH RESP.Q6H PRN PRN Reason: Wheezing Last Admin: 06/25/16 10:35 Dose: 3 ml Apixaban (Eliquis) 10 mg PO NOW MIGUEL Last Admin: 06/24/16 18:59 Dose: 10 mg Apixaban (Eliquis) 10 mg PO BID [facility] Last Admin: 06/25/16 11:44 Dose: 10 mg Benzonatate (Tessalon) 100 mg PO TID PRN PRN Reason: COUGH Dicyclomine HCl (Bentyl) 20 mg PO QIDACHS [facility] Last Admin: 06/25/16 11:43 Dose: Not Given Diphenhydramine HCl (Benadryl Capsule) 25 mg PO QHS [facility] Last Admin: 06/24/16 22:16 Dose: 25 mg Fluoxetine HCl (Prozac) 40 mg PO QHS [facility] Last Admin: 06/24/16 22:15 Dose: 40 mg Gabapentin (Neurontin) 600 mg PO TID [facility] Last Admin: 06/25/16 09:29 Dose: Not Given Guaifenesin (Mucinex) 1,200 mg PO BID [facility] Last Admin: 06/25/16 09:29 Dose: Not Given Insulin Detemir (Levemir Flextouch) 5 unit SQ QHS [facility] Last Admin: 06/24/16 22:38 Dose: 5 unit Methylprednisolone Sodium Succinate (Solu-Medrol) 60 mg IVP DAILY [facility] Last Admin: 06/25/16 11:44 Dose: 60 mg Ondansetron HCl (Zofran Odt) 4 mg PO Q8H PRN PRN Reason: NAUSEA [facility]op[facility] Last Admin: 06/25/16 06:33 Dose: 40 mg Simvastatin (Zocor) 20 mg PO QHS [facility] Sodium Chloride (Hyper-Grayson) 4 ml INH Q4H PRN PRN Reason: DIFFICULTY IN BREATHING Last Admin: 06/25/16 10:56 Dose: 4 ml Sucralfate (Carafate) 1 g PO QID [facility] Last Admin: 06/25/16 09:29 Dose: Not Given Tramadol HCl (Ultram) 50 mg PO Q6H PRN PRN Reason: Pain - Moderate (5-7) Tramadol HCl (Ultram) 100 mg PO Q6H PRN PRN Reason: Pain - Severe (8-10) Last Admin: 06/25/16 06:36 Dose: 100 mg Trazodone HCl (Desyrel) 150 mg PO QHS [facility] Last Admin: 06/24/16 22:15 Dose: 150 mg Verapamil HCl (Calan Sr) 120 mg PO QHS MIGUEL Physical Exam - Vital Signs Vital Signs: Vital Signs - Last 24 Hrs Temp Pulse Pulse Resp BP Pulse Ox 06/25/16 11:16 97 06/25/16 11:10 66 18 97 06/25/16 10:49 70 20 98 06/25/16 09:00 18 06/25/16 07:50 97.9 F 69 20 123/68 96 06/25/16 06:11 67 20 97 06/25/16 02:34 65 20 96 06/25/16 01:11 99.0 F 69 18 124/69 98 06/24/16 20:45 74 20 96 06/24/16 19:33 98.6 F 83 14 132/75 98 - General General Appearance: Alert, Oriented x3, Cooperative, Mild distress Limitations: No limitations - Head Head exam: Normal inspection - Eye Eye exam: Normal appearance, PERRL, EOMI Pupils: Normal accommodation - ENT ENT exam: Normal exam, Mucous membranes moist, Normal external ear exam, Normal orophraynx Ear exam: Normal external inspection. negative: External canal tenderness Nasal Exam: Normal inspection. negative: Discharge, Sinus tenderness Mouth exam: Normal external inspection, Tongue normal Teeth exam: Normal inspection. negative: Dental caries Throat exam: Normal inspection. negative: Tonsillar erythema, Tonsillar exudate - Neck Neck exam: Normal inspection, Full ROM. negative: Tenderness - Respiratory Respiratory exam: Respiratory distress (chronic), Wheezes (baseline for patient) - Cardiovascular Cardiovascular Exam: Regular rate, Normal rhythm, Normal heart sounds - GI/Abdominal GI/Abdominal exam: Soft, Normal bowel sounds. negative: Tenderness - Rectal Rectal exam: Deferred - exam: Deferred - Extremities Extremities exam: Normal inspection, Full ROM, Normal capillary refill. negative: Tenderness - Back Back exam: Reports: Normal inspection, Full ROM. Denies: Muscle spasm, Rash noted, Tenderness - Neurological Neurological exam: Alert, CN II-XII intact, Normal gait, Oriented X3 - Psychiatric Psychiatric exam: Normal affect, Normal mood - Skin Skin exam: Dry, Intact, Normal color, Warm Results - Labs Result Diagrams: 06/24/16 16:36 06/24/16 16:36 Labs Last 24 Hours: Laboratory Results - last 24 hr 06/24/16 06/24/16 06/25/16 22:00 22:05 07:52 POC Glucose 212 H 212 H 126 H 06/25/16 11:47 POC Glucose 111 H VTE H&P Assessment - Risk for VTE Risk for VTE: Yes Risk Level: High Risk Assessment Date: 06/25/16 Risk Assessment Time: 15:34 VTE Orders Placed or Will Be Placed: Yes - VTE Confirmation VTE Confirmed w/Diagnostic Imaging Test: Yes Plan - Detailed Diagnosis and Plan (1) Pulmonary embolism Current Visit: Yes Status: Acute Qualifiers: Pulmonary embolism type: other Chronicity: acute Acute cor pulmonale presence: without acute cor pulmonale Qualified Code(s): I26.99 - Other pulmonary embolism without acute cor pulmonale Base Code: I26.99 - OTHER PULMONARY EMBOLISM WITHOUT ACUTE COR PULMONALE Comment: 06/25- started on eliquis 10mg BID, will be on 6 months of anticoag - follow up with cardio as outpatient Patient will remain in hospital greater than 2 midnights and services warrent inpatient due to : RIsk factors: severe COPD, shortness of breath, inabiltiy to do ADLs with level of weakenss, recurrent admissions for same and newly diagosed pulmonary embolism Estimated LOS: 2-3 days Services needed: IV medications, Respiratory therapy (2) COPD with exacerbation Current Visit: No Status: Acute Base Code: J44.1 - CHRONIC OBSTRUCTIVE PULMONARY DISEASE W (ACUTE) EXACERBATION Comment: 06/25/16: 56 yo female w/ history of COPD failed outpatient treatment for acute exacerbation and then diagnosed with PE. Appears to be in CHF as well. - will check alpha fetoprotien - levaquin 500mg for 5 days after 750 IV here - lasix 40mg to remove extra fluid - steroids 60mg QD - breathing treatments with advair, spiriva, albuterol, and 7% saline for congestion (3) DVT prophylaxis Current Visit: Yes Status: Acute Base Code: [id number] - Comment: 06/25- started on eliquis for confirmed PE (4) Full code status Current Visit: Yes Status: Acute Base Code: Z78.9 - OTHER SPECIFIED HEALTH STATUS Comment: 06/25- patient remains full code
[2016-06-25] MEDS ORDERED: MORPHINE SULFATE 5 MG/ML PFS IVP PRN (13:14)
[2016-06-25] MEDS: FUROSEMIDE IV 40MG/4ML VIAL IVP SCH (14:35)
[2016-06-25] MEDS: LEVOFLOXACIN/D5W 750 MG in DEXTROSE 1 BAG IVPB SCH (14:36)
--- NOTE | 2016-06-25 15:05 | Discharge Summary ---
Providers Discharge Summary Date: 06/26/16 Date of admission: 06/24/16 19:13 Expected Date of Discharge: 06/26/16 Attending physician: BENNY PETE Primary care physician: BENNY PETE Physical Exam - Vital Signs Vital Signs: Vital Signs - Last 24 Hrs Temp Pulse Pulse Resp BP Pulse Ox 06/25/16 14:39 74 18 97 06/25/16 11:16 97 06/25/16 11:10 66 18 97 06/25/16 10:49 70 20 98 06/25/16 09:00 18 06/25/16 07:50 97.9 F 69 20 123/68 96 06/25/16 06:11 67 20 97 06/25/16 02:34 65 20 96 06/25/16 01:11 99.0 F 69 18 124/69 98 06/24/16 20:45 74 20 96 06/24/16 19:33 98.6 F 83 14 132/75 98 - General General Appearance: Alert, Oriented x3, Cooperative, Mild distress Limitations: No limitations - Head Head exam: Normal inspection - Eye Eye exam: Normal appearance, PERRL, EOMI Pupils: Normal accommodation - ENT ENT exam: Normal exam, Mucous membranes moist, Normal external ear exam, Normal orophraynx Ear exam: Normal external inspection. negative: External canal tenderness Nasal Exam: Normal inspection. negative: Discharge, Sinus tenderness Mouth exam: Normal external inspection, Tongue normal Teeth exam: Normal inspection. negative: Dental caries Throat exam: Normal inspection. negative: Tonsillar erythema, Tonsillar exudate - Neck Neck exam: Normal inspection, Full ROM. negative: Tenderness - Respiratory Respiratory exam: Respiratory distress (chronic), Wheezes (baseline for patient) - Cardiovascular Cardiovascular Exam: Regular rate, Normal rhythm, Normal heart sounds - GI/Abdominal GI/Abdominal exam: Soft, Normal bowel sounds. negative: Tenderness - Rectal Rectal exam: Deferred - exam: Deferred - Extremities Extremities exam: Normal inspection, Full ROM, Normal capillary refill. negative: Tenderness - Back Back exam: Reports: Normal inspection, Full ROM. Denies: Muscle spasm, Rash noted, Tenderness - Neurological Neurological exam: Alert, CN II-XII intact, Normal gait, Oriented X3 - Psychiatric Psychiatric exam: Normal affect, Normal mood - Skin Skin exam: Dry, Intact, Normal color, Warm Hospitalization - Hospitalization Admission Diagnosis: pulmonary embolism, copd - Problem List/Discharge Diagnosis (1) Pulmonary embolism Current Visit: Yes Status: Acute Discharge Diagnosis: Pulmonary embolism type: other Chronicity: acute Acute cor pulmonale presence: without acute cor pulmonale Qualified Code(s): I26.99 - Other pulmonary embolism without acute cor pulmonale Base Code: I26.99 - OTHER PULMONARY EMBOLISM WITHOUT ACUTE COR PULMONALE Comment: 06/26- started on eliquis 10mg BID, will be on 6 months of anticoag. Patient doing significantly better with breathing treatments and lasixs. - follow up with cardio as outpatient Patient will remain in hospital greater than 2 midnights and services warrent inpatient due to : RIsk factors: severe COPD, shortness of breath, inabiltiy to do ADLs with level of weakenss, recurrent admissions for same and newly diagosed pulmonary embolism Estimated LOS: 2-3 days Services needed: IV medications, Respiratory therapy (2) COPD with exacerbation Current Visit: No Status: Acute Base Code: J44.1 - CHRONIC OBSTRUCTIVE PULMONARY DISEASE W (ACUTE) EXACERBATION Comment: 06/26/16: 56 yo female w/ history of COPD failed outpatient treatment for acute exacerbation and then diagnosed with PE. Appears to be in CHF as well. - will check alpha fetoprotien (pending) - levaquin 500mg for 5 days after 750 IV here - lasix 40mg to remove extra fluid - steroids 60mg QD for 10 days - breathing treatments with advair, spiriva, albuterol, and 7% saline for congestion. Will not send home on 7% saline as it may trigger bronchospasm. - Hospitalization Course Disposition: Home, Self-Care Procedures: Cardiology Procedures 06/25/16 01:13 EKG NOW Abnormal Labs: Abnormal Lab Results 06/24/16 06/24/16 06/25/16 Range/Units 22:00 22:05 07:52 POC Glucose 212 H 212 H 126 H (70-110) mg/dL 06/25/16 Range/Units 11:47 POC Glucose 111 H (70-110) mg/dL Condition at Discharge: (2) Stable Discharge Diagnosis: 1) PE 2) copd exaccerbation 3) suspect CHF Discharge Medications - Discharge Medications Prescriptions: Fluticasone/Salmeterol 500/50 [Advair 500/50] 1 puff INH RESP.Q12H #1 disk Apixaban [Eliquis] 5 mg PO BID #60 tablet Terbinafine HCl [Lamisil] 250 mg PO DAILY #30 tablet Levofloxacin [Levaquin Tab] 500 mg PO DAILY #5 tab Gabapentin [Neurontin] 600 mg PO TID #180 capsule Prednisone [Prednisone 20Mg] 20 mg PO TID #30 tab Tiotropium Whitney [Spiriva] 1 cap INH RESP.DAILY #1 cap.w.dev Home Medications: Ambulatory Orders Roflumilast [Daliresp] 500 mcg PO DAILY 12/13/13 [Last Taken 06/24/16] Beclomethasone Dipropionate [Qvar] 2 puff IH BID 04/29/14 [Last Taken 06/24/16] Epinephrine [Epipen] 0.3 mg IM .NOW PRN #1 syr 02/05/15 [Last Taken 02/15/15] Tiotropium [place] [Spiriva Respimat] 1 inh IH DAILY 11/19/15 [Last Taken ] Dicyclomine HCl 20 mg PO QIDACHS 06/16/16 [Last Taken 06/24/16] Diphenhydramine HCl [Benadryl] 25 mg PO QHS 06/16/16 [Last Taken 06/23/16] Fluoxetine HCl 40 mg PO QHS 06/16/16 [Last Taken 06/23/16] Hydroxyzine Pamoate 25 mg PO QID 06/16/16 [Last Taken 06/24/16] Loratadine [Claritin] 10 mg PO DAILY 06/16/16 [Last Taken 06/24/16] Omeprazole 40 mg PO BIDAC 06/16/16 [Last Taken 06/24/16] Verapamil HCl [Verapamil Sr] 120 mg PO QHS 06/16/16 [Last Taken 06/23/16 120 mg] Benzonatate [Tessalon Perles] 100 mg PO TID PRN #30 capsule 06/17/16 [Last Taken Unknown] Fluconazole [Diflucan] 150 mg PO ONCE #1 tab 06/17/16 [Last Taken Unknown] Ondansetron [Zofran Odt] 4 mg PO Q8H PRN #20 tab.rapdis 06/17/16 [Last Taken Unknown] Acetaminophen [Tylenol 500Mg Tab] 1,000 mg PO Q6H PRN #0 tablet 06/25/16 [Last Taken Unknown] Apixaban [Eliquis] 5 mg PO BID #60 tablet 06/25/16 [Last Taken Unknown] Fluoxetine HCl [Prozac] 40 mg PO QAM #60 capsule 06/25/16 [Last Taken Unknown] Gabapentin [Neurontin] 600 mg PO TID #180 capsule 06/25/16 [Last Taken Unknown] Levofloxacin [Levaquin] 500 mg PO DAILY #5 tab 06/25/16 [Last Taken Unknown] Prednisone [Prednisone 20Mg] 20 mg PO TID #30 tab 06/25/16 [Last Taken Unknown] Sodium Chloride 7% For INH [Hyper-Grayson] 4 ml INH Q4H PRN #0 vial.neb 06/25/16 [ Last Taken Unknown] Terbinafine HCl [Lamisil] 250 mg PO DAILY #30 tablet 06/25/16 [Last Taken Unknown] Tiotropium Whitney [Spiriva] 1 cap INH RESP.DAILY #1 cap.w.dev 06/25/16 [Last Taken Unknown] Trazodone HCl [Desyrel] 150 mg PO QHS tab 06/25/16 [Last Taken Unknown] Verapamil HCl [Calan Sr] 120 mg PO QHS tablet.er 06/25/16 [Last Taken Unknown] Albuterol Sulfate 0.083% [Neb] 2.5 mg INH RESP.Q4H PRN #120 nebulization solution 06/26/16 [Last Taken Unknown] Albuterol Sulfate 0.083% [Neb] 2.5 mg INH RESP.Q6H.WA PRN #0 nebulization solution 06/26/16 [Last Taken Unknown] Albuterol Sulfate [Ventolin Hfa] 1 - 2 puff IH .EVERY 4-6 HOURS PRN #1 inhaler 06/26/16 [Last Taken Unknown] Fluticasone/Salmeterol 500/50 [Advair 500/50] 1 puff INH RESP.Q12H #1 disk 06/26 [Last Taken Unknown] Furosemide [Lasix] 40 mg PO DAILY #30 tablet 06/26/16 [Last Taken Unknown] Pantoprazole Sodium [Protonix] 40 mg PO BIDAC tablet. 06/26/16 [Last Taken Unknown] Tramadol HCl [Ultram] 50 mg PO Q6H PRN #30 tablet 06/26/16 [Last Taken Unknown] Discharge Plan - Discharge Instructions Activity at Discharge: Increase Activity as Tolerated Diet at Discharge: Advance to Usual Diet
[2016-06-25] MEDS: BENZONATATE 100 MG CAPSULE PO PRN ×2 (16:07→22:07)
[2016-06-25] MEDS: FLUTICASONE/SALMETEROL 500/50 DISKUS INH SCH (17:51)
[2016-06-25] MEDS ORDERED: SIMVASTATIN 20 MG TABLET PO SCH (22:00)
[2016-06-25] MEDS ORDERED: VERAPAMIL ER 120 MG TABLET PO SCH (22:00)
[2016-06-25] MEDS: TRAZODONE 50 MG TABLET PO SCH (22:01)
[2016-06-25] MEDS: FLUOXETINE HCL 20 MG CAPSULE PO SCH (22:03)
[2016-06-25] MEDS: LEVEMIR FLEXTOUCH 100 UNIT/ML INSULIN PEN SQ SCH (22:10)
[2016-06-25] MEDS: DIPHENHYDRAMINE HCL 25 MG CAPSULE PO SCH (22:51)
[2016-06-26] MEDS: ALBUTEROL SULFATE (0.083%) 2.5 MG/3 ML NEB INH PRN ×2 (02:23→06:19)
[2016-06-26] MEDS ORDERED: TIOTROPIUM BROMIDE 5 CAPSULES INH SCH (06:00)
[2016-06-26] MEDS: FLUTICASONE/SALMETEROL 500/50 DISKUS INH SCH (06:26)
[2016-06-26 06:37] LABS: HEMATOCRIT 32.6 % (35.0-47.0); HEMOGLOBIN 9.8 gm/dl (11.6-16.0); MEAN CELL VOLUME 62.9 fl (81-97); MEAN CORPUSCULAR HEMOGLOBIN 18.9 pg (27-33); MEAN CORPUSCULAR HGB CONC 30.1 g/dl (32-36); MEAN PLATELET VOLUME 8.5 fl (7.4-10.4); PLATELET COUNT 619 K/uL (130-400); RED BLOOD COUNT 5.18 M/uL (3.80-5.40); WHITE BLOOD COUNT W/O DIFF 16.2 K/uL (4.2-12.2)
[2016-06-26 06:43] LABS: ALB/GLOB RATIO 1.3 (1.1-1.8); ALBUMIN 3.7 gm/dL (3.5-5.0); ALKALINE PHOSPHATASE 66 U/L (38-126); ALT/SGPT 23 U/L (9-52); ANION GAP 13.8 (7-16); AST/SGOT 11 U/L (14-36); BILIRUBIN,TOTAL 0.16 mg/dL (0.2-1.3); BLOOD UREA NITROGEN 16 mg/dL (7-17); CARBON DIOXIDE 27.2 mmol/L (22-30); CREATININE 0.7 mg/dL (0.52-1.04); EST GLOMERULAR FILTRATION RATE > 60 ml/min; GLUCOSE,RANDOM 94 mg/dL (70-110); TOTAL PROTEIN 6.6 gm/dL (6.3-8.2)
[2016-06-26 07:01] LABS: PLATELET ESTIMATE INCREASED (NORMAL)
[2016-06-26] MEDS: PANTOPRAZOLE SODIUM 40 MG TABLET PO SCH (07:05)
[2016-06-26] MEDS: TRAMADOL HCL 50 MG TABLET PO PRN (07:05)
[2016-06-26] MEDS: DICYCLOMINE HCL 10 MG CAPSULE PO SCH ×2 (07:06→12:08)
[2016-06-26] MEDS: METHYLPREDNISOLONE PF 125MG/VIAL IVP SCH (10:03)
[2016-06-26] MEDS: APIXABAN 5MG TABLET PO SCH ×2 (10:03→12:05)
[2016-06-26] MEDS: SUCRALFATE 1 G/10 ML UD PO SCH (10:03)
[2016-06-26] MEDS: FUROSEMIDE IV 40MG/4ML VIAL IVP SCH (10:03)
[2016-06-26] MEDS: GABAPENTIN 300 MG CAPSULE PO SCH (10:03)
[2016-06-26] MEDS: GUAIFENESIN 1,200 MG TABLET PO SCH (10:03)
[2016-06-26] MEDS ORDERED: ALBUTEROL SULFATE (0.083%) 2.5 MG/3 ML NEB INH PRN (10:04)
[2016-06-26] MEDS: LEVOFLOXACIN/D5W 750 MG in DEXTROSE 1 BAG IVPB SCH (10:07)
== END 2016-06-26 14:27 | disposition home health service (06) | DRG 176 ==
LOC: ER 15:40 → MEDSURG 19:13 → OBSVTOIN 06-25 14:49
PROVIDERS: ADMIT Family Medicine; ATTEND Family Medicine
DX: I26.99 Other pulmonary embolism without acute cor pulmonale (principal); J44.1 Chronic obstructive pulmonary disease with (acute) exacerbation; M79.7 Fibromyalgia; M19.90 Unspecified osteoarthritis, unspecified site; I50.9 Heart failure, unspecified; Z78.9 Other specified health status; E11.9 Type 2 diabetes mellitus without complications; Z79.4 Long term (current) use of insulin
CPT/HCPCS: 93041; 99285 ×2; 94760 ×2; 96374; 96372; 96375; 84484; 80048; 36416 ×4; 82948 ×4; 85379; 85027; 83880; 71275; 94640 ×3; 94762; 94667; 94668; G0378 ×5; Q9967; J2405; J1956; J1815; J3490 ×2; 80053; 82103; 94761; 99223; 99239; J1940; J2930; J7613

== ENCOUNTER 2016-12-30 10:53 | Emergency (ER) | payer MEDICARE, MEDICAID ==
[2016-12-30] MEDS ORDERED: IPRATROPIUM/ALBUTEROL (0.5MG/3MG) NEB INH ONE (11:23)
[2016-12-30] MEDS ORDERED: HYDROMORPHONE HCL 1MG/ML **SYRINGE IVP ONE (11:25)
[2016-12-30] MEDS ORDERED: PROMETHAZINE HCL 6.25 MG in 0.9 % SODIUM CHLORIDE 100ML 100 ML IVPB ONE (11:25)
[2016-12-30] MEDS ORDERED: HYDROCODONE/APAP 5/325MG TABLET PO ONE (14:15)
[2016-12-30] MEDS ORDERED: APIXABAN 5MG TABLET PO SCH (14:15)
--- NOTE | 2016-12-30 14:16 | Emergency Department Record ---
History of Present Illness - General Chief Complaint: Knee injury Stated Complaint: RIGHT KNEE PAIN Time Seen by Provider: 12/30/16 10:55 Source: Patient Mode of Arrival: Wheelchair Limitations: No limitations - History of Present Illness Initial Comments: pt woke up with r knee pain and r leg pain. pt states it feels like her previous dvt. it also hurts in the thigh. she states that the knee feels like it is going to go out on her. Complaint: Knee injury, Other Onset/Timin -: Days(s) Injury: Thigh: Right, Leg: Right, Knee: Right Type of Injury: Unknown Place: Home Severity scale (1-10): >10 Improves With: Nothing Worsens With: Palpation, Weight bearing Other Symptoms: Other Associated Symptoms: Unable to bear weight - Related Data Home Medications Medication Instructions Recorded Confirmed Last Taken Ergocalciferol (Vitamin D2) 50,000 unit PO WEEKLY 12/30/16 12/30/16 Unknown [Vitamin D2] Hydroxychloroquine Sulfate 200 mg PO DAILY 12/30/16 12/30/16 Unknown [Plaquenil] Prednisone [Prednisone 10Mg] 10 mg PO DAILY 12/30/16 12/30/16 Unknown Previous Rx's Medication Instructions Recorded Ondansetron [Zofran Odt] 4 mg PO Q8H PRN #20 tab.rapdis 06/17/16 Acetaminophen [Tylenol 500Mg Tab] 1,000 mg PO Q6H PRN #0 tablet 06/25/16 Tiotropium [place] [Spiriva] 1 cap INH RESP.DAILY #1 cap.w.dev 06/25/16 Trazodone HCl [Desyrel] 150 mg PO QHS tab 06/25/16 Albuterol Sulfate 0.083% [Neb] 2.5 mg INH RESP.Q4H PRN #120 06/26/16 nebulization solution Fluticasone/Salmeterol 500/50 1 puff INH RESP.Q12H #1 disk 06/26/16 [Advair 500/50] Pantoprazole Sodium [Protonix] 40 mg PO BIDAC tablet. 06/26/16 Apixaban [Eliquis] 10 mg PO BID #14 tablet 12/30/16 Hydrocodone/Acetaminophen [[place] 1 each PO QID #10 tablet 12/30/16 5-325 Tablet] Allergies Allergy/AdvReac Type Severity Reaction Status Date / Time Sulfa (Sulfonamide Allergy Intermediate HIVES Unverified 11/25/16 09:54 Antibiotics) codeine Allergy Mild VOMITING Unverified 11/25/16 09:54 morphine Allergy Mild VOMITING Unverified 11/25/16 09:54 aspirin [ASPIRIN] Allergy Unknown GI UPSET Unverified 11/25/16 09:54 cephalexin monohydrate Allergy Unknown "BLEEDING Unverified 11/25/16 09:54 [From KEFLEX] FROM EARS AND NOSE" strawberry Allergy DIFFICULTY Unverified 11/25/16 09:54 BREATHING venom-honey bee Allergy ANAPHYLAXIS Unverified 11/25/16 09:54 venom-wasp Allergy ANAPHYLAXIS Unverified 11/25/16 09:54 Travel Screening - Travel/Exposure Within Last 30 Days Have you traveled within the last 30 days?: No Review of Systems Reviewed: No additional complaints except as noted below Constitutional: Reports: As per HPI. Denies: Chills, Fever, Malaise, Night sweats, Weakness, Weight change Eyes: Reports: As per HPI. Denies: Eye discharge, Eye pain, Photophobia, Vision change ENT: Reports: As per HPI. Denies: Congestion, Dental pain, Ear pain, Epistaxis , Hearing loss, Throat pain Respiratory: Reports: As per HPI. Denies: Cough, Dyspnea, Hemoptysis, Stridor, Wheezes Cardiovascular: Reports: As per HPI. Denies: Arrhythmia, Chest pain, Dyspnea on exertion, Edema, Murmurs, Orthopnea, Palpitations, Paroxysmal nocturnal dyspnea, Rheumatic Fever, Syncope Endocrine: Reports: As per HPI. Denies: Fatigue, Heat or cold intolerance, Polydipsia, Polyuria Gastrointestinal: Reports: As per HPI. Denies: Abdominal pain, Constipation, Diarrhea, Hematemesis, Hematochezia, Melena, Nausea, Vomiting Genitourinary: Reports: As per HPI. Denies: Abnormal menses, Discharge, Dyspareunia, Dysuria, Frequency, Hematuria, Incontinence, Retention, Urgency Musculoskeletal: Reports: As per HPI. Denies: Arthralgia, Back pain, Gout, Joint swelling, Myalgia, Neck pain Skin: Reports: As per HPI. Denies: Bruising, Change in color, Change in hair/ nails, Lesions, Pruritus, Rash Neurological: Reports: As per HPI. Denies: Abnormal gait, Confusion, Headache, Numbness, Paresthesias, Seizure, Tingling, Tremors, Vertigo, Weakness Psychiatric: Reports: As per HPI. Denies: Anxiety, Auditory hallucinations, Depression, Homicidal thoughts, Suicidal thoughts, Visual hallucinations Hematological/Lymphatic: Reports: As per HPI. Denies: Anemia, Blood Clots, Easy bleeding, Easy bruising, Swollen glands Past Medical History - SOCIAL HISTORY Smoking Status: Former smoker Alcohol Use: None Drug Use: None - RESPIRATORY Hx Respiratory Disorders: Yes Hx COPD: Yes - CARDIOVASCULAR Hx Cardio Disorders: Yes Hx CHF: Yes (2017) Comment:: "HIGH HEART RATE" - NEURO Hx Neuro Disorders: No - GI Hx GI Disorders: Yes Hx Reflux: Yes - Hx Genitourinary Disorders: No - ENDOCRINE Hx Endocrine Disorders: Yes Hx Diabetes: Yes - MUSCULOSKELETAL Hx Musculoskeletal Disorders: Yes Hx Arthritis: Yes (OSTEOARTHRITIS) Hx Fibromyalgia: Yes - PSYCH Hx Psych Problems: Yes Hx Anxiety: Yes Hx Depression: Yes - HEMATOLOGY/ONCOLOGY Hx Hematology/Oncology Disorders: No Family Medical History Any Significant Family History?: Yes Hx Cancer: Father, Grandparents *Cancer Comment: BONE CANCER WITH GRANDFATHER, LUNG CA WITH FATHER Physical Exam - General General Appearance: Alert, Oriented x3, Cooperative, Mild distress - Head Head exam: Normal inspection - Eye Eye exam: Normal appearance, PERRL, EOMI Pupils: Normal accommodation - ENT ENT exam: Normal exam, Mucous membranes moist, Normal external ear exam, Normal orophraynx Ear exam: Normal external inspection. negative: External canal tenderness Nasal Exam: Normal inspection. negative: Discharge, Sinus tenderness Mouth exam: Normal external inspection, Tongue normal Teeth exam: Normal inspection. negative: Dental caries Throat exam: Normal inspection. negative: Tonsillar erythema, Tonsillar exudate - Neck Neck exam: Normal inspection, Full ROM. negative: Tenderness - Respiratory Respiratory exam: Normal lung sounds bilaterally. negative: Respiratory distress - Cardiovascular Cardiovascular Exam: Regular rate, Normal rhythm, Normal heart sounds - GI/Abdominal GI/Abdominal exam: Soft, Normal bowel sounds. negative: Tenderness - Rectal Rectal exam: Deferred - exam: Deferred - Extremities Extremities exam: Normal inspection, Full ROM, Normal capillary refill, Tenderness Image of Full Body: 1 - tender 2 - tender w swelling - Back Back exam: Reports: Normal inspection, Full ROM. Denies: Muscle spasm, Rash noted, Tenderness - Neurological Neurological exam: Alert, CN II-XII intact, Normal gait, Oriented X3 - Psychiatric Psychiatric exam: Normal affect, Normal mood - Skin Skin exam: Dry, Intact, Normal color, Warm Course Vital Signs 12/30/16 12/30/16 12/30/16 10:54 11:45 13:44 Temperature 98.2 F Pulse Rate 92 H 88 Pulse Rate [ 64 Pulse Ox Probe] Respiratory 24 20 18 Rate Blood Pressure 129/107 Blood Pressure 119/53 [Right Arm] Pulse Ox 98 97 - Reevaluation(s) Reevaluation #1: 12/30/16 14:30 us shows r dvt. d/w dr morgan Disposition Disposition: Discharge Clinical Impression: DVT (deep venous thrombosis) Qualifiers: DVT location: lower extremity Affected thrombotic vein of extremity: unspecified vein of extremity Chronicity: acute Laterality: right Qualified Code (s): I82.401 - Acute embolism and thrombosis of unspecified deep veins of right lower extremity Injury of ligament of left knee Qualifiers: Encounter type: initial encounter Qualified Code(s): S89.92XA - Unspecified injury of left lower leg, initial encounter Disposition: Home, Self-Care Condition: (1) Good Instructions: Deep Vein Thrombosis Prevention (ED), Bleeding Disorders (ED), Blood Thinners (ED), Knee Immobilizer (ED), Knee Sprain (ED) Additional Instructions: follow up with dr morgan next week. increase eliquist to 10mg a day fr the next 7 days. return sooner if worse Prescriptions: Apixaban [Eliquis] 10 mg PO BID #14 tablet Hydrocodone/Acetaminophen [[place] 5-325 Tablet] 1 each PO QID #10 tablet Forms: Patient Portal Access Quality - Quality Measures Quality Measures: N/A - Blood Pressure Screening Does Patient Have Any of the Following: No Blood Pressure Classification: Hypertensive Reading Systolic Measurement: 129 Diastolic Measurement: 107 Screening for High Blood Pressure: < Pre-Hypertensive BP, F/U Documented > [ G8950] Pre-Hypertensive Follow-up Interventions: Follow-up with rescreen every year.
--- NOTE | 2016-12-31 08:56 | US VENOUS DOPPLER REPORT ---
EXAM: DUPLEX DOPPLER ULTRASOUND OF THE BILATERAL LOWER EXTREMITY VEINS HISTORY: RIGHT KNEE PAIN. TECHNIQUE: Real-time franz scale and Duplex Doppler ultrasound examination of the bilateral lower extremity veins was performed. No comparison studies are available. FINDINGS: There is a small focus of increased echogenicity identified within the proximal right profunda femoral vein which may represent a deep venous thrombosis. There is a small focus of increased echogenicity within the posterior wall of the distal superficial femoral vein on the right which may represent a small adherent DVT. There is an isoechoic focus within the anterior wall off the popliteal vein. There is a lack of compression of the distal right lower extremity veins. There is swelling around the right knee. The contour, caliber, flow, compressibility and augmentation of the left greater saphenous vein, common femoral vein, popliteal vein, superficial femoral veins, posterior tibial , peroneal and anterior tibial veins are within normal limits. Within the lateral aspect of the left knee there is a 1.3 cm x 1.1 cm x 1.5 cm focus of increased echogenicity. This finding is nonspecific and may represent a a fibroma and/or ganglion cyst with internal debris. IMPRESSION: 1. AREAS OF NON-COMPRESSIBILITY AND INTRALUMINAL ECHOGENICITY ARE IDENTIFIED WITHIN THE RIGHT LOWER EXTREMITY VEINS DISCUSSED ABOVE. DEEP VENOUS THROMBOSIS CANNOT BE EXCLUDED. 2. NO SONOGRAPHIC EVIDENCE OF DEEP VENOUS THROMBOSIS WITHIN THE LEFT LOWER EXTREMITY VEINS DISCUSSED ABOVE. 3. ISOECHOIC TO INCREASED ECHOGENICITY LESION IDENTIFIED WITHIN THE LATERAL ASPECT OF THE LEFT KNEE. DIFFERENTIAL CONSIDERATIONS INCLUDE: FIBROMA AND/OR GANGLION CYST WITH INTERNAL DEBRIS. JOB [facility]BER: [id number] [facility]
== END 2016-12-30 15:03 | disposition home or self-care (01) ==
LOC: ER 10:53
DX: I82.401 Acute embolism and thrombosis of unspecified deep veins of right lower extremity (principal); R11.0 Nausea; J44.9 Chronic obstructive pulmonary disease, unspecified; I50.9 Heart failure, unspecified; Z86.718 Personal history of other venous thrombosis and embolism; Z79.01 Long term (current) use of anticoagulants; Z87.891 Personal history of nicotine dependence
CPT/HCPCS: 93970; 94640; 96365; 96366; 96375; 99284; J1170; J2550

== ENCOUNTER 2017-10-06 12:39 | Day surgery (SDC) | payer MEDICARE, MEDICAID ==
[2017-10-06] MEDS ORDERED: ONDANSETRON HCL IV 4 MG/2 ML VIAL IVP ONE (12:40)
[2017-10-06] MEDS ORDERED: PROPOFOL 10 MG/ML VIAL IV ONE (12:40)
[2017-10-06] MEDS ORDERED: LIDOCAINE 2% MDV (20MG/ML) 20ML VIAL IV ONE (12:40)
--- NOTE | 2017-10-10 13:00 | Operative Note ---
DATE OF SURGERY: 10/06/2017 OPERATION: 1. ESOPHAGOGASTRODUODENOSCOPY with biopsy. 2. COLONOSCOPY with cold snare. PREOPERATIVE DIAGNOSIS: Chronic heartburn and personal history of colon polyps. POSTOPERATIVE DIAGNOSES: 1. Nonerosive gastritis. 2. Ascending colon polyp. PREPARATION QUALITY: Good. ESTIMATED BLOOD LOSS: Minimum. SPECIMENS: Gastric and ascending colon. COMPLICATIONS: None apparent. PROCEDURE: After informed consent was obtained from the patient, she was placed in the left lateral decubitus position in the endoscopy suite, sedated and monitored by the department of anesthesia. A well-lubricated [id number] gastroscope was placed in the posterior oropharynx and under direct visualization passed to the proximal esophagus. The endoscope was advanced through the proximal, mid, and distal esophagus. The GE junction was unremarkable. The esophagus was unremarkable. The gastric body was then entered demonstrating normal distensibility, normal rugal folds. There were patchy erythematous changes on the greater curve in particular. The antrum was unrevealing. The pylorus, duodenal bulb, and sweep were unremarkable. J-turn views of the proximal stomach revealed mild erythema. The endoscope was straightened. Random gastric biopsies were obtained. The endoscope was removed from the patient with no new findings noted. Digital rectal exam was unremarkable. A well-lubricated [id number] colonoscope was inserted into the rectum and advanced through a somewhat tortuous sigmoid colon to the level of the descending, transverse, and ultimately and ascending colon and the cecum. The cecum was identified by the ileocecal valve and appendiceal orifice. No abnormalities were noted. In the ascending colon there was a 4-5 mm sessile polyp which was removed with a cold snare. Minimal bleeding was noted at the site. The polyp was retrieved without difficulty. The remainder of the ascending colon, transverse colon, descending colon, sigmoid colon, and rectum were unremarkable. J-turn views of the anorectum were unrevealing. The endoscope was straightened, the rectal ampulla deflated, and the endoscope was removed. RECOMMENDATIONS: The patient should resume her medications and diet. She will require repeat colonoscopy in 5 years for continued surveillance. As always, thank you for allowing me to participate in the healthcare of your patients. CC: MD ANJUM Abrams
== END 2017-10-06 14:40 | disposition home or self-care (01) ==
LOC: HOP 12:39
PROVIDERS: ATTEND Internal Medicine Gastroenterology
DX: Z86.010 Personal history of colon polyps (principal); D12.2 Benign neoplasm of ascending colon; K29.70 Gastritis, unspecified, without bleeding; J44.9 Chronic obstructive pulmonary disease, unspecified; E78.00 Pure hypercholesterolemia, unspecified; E11.9 Type 2 diabetes mellitus without complications; Z79.4 Long term (current) use of insulin; M19.90 Unspecified osteoarthritis, unspecified site
CPT/HCPCS: J2405

== ENCOUNTER 2018-06-30 15:55 | Emergency (ER) | payer MEDICARE, MEDICAID ==
[2018-06-30] MEDS ORDERED: 0.9 % SODIUM CHLORIDE 1,000 ML BAG IV ONE (17:09)
[2018-06-30] MEDS ORDERED: ONDANSETRON HCL IV 4 MG/2 ML VIAL IVP ONE (17:10)
[2018-06-30 17:29] LABS: BASO % 0.9 % (0-6); EOS % 0.6 % (0-6); GRAN % 73.7 % (47-80); HEMATOCRIT 36.7 % (35.0-47.0); LYMPH % 17.2 % (16-45); MEAN CELL VOLUME 65.1 fl (81-97); MEAN CORPUSCULAR HEMOGLOBIN 19.5 pg (27-33); MEAN PLATELET VOLUME 8.4 fl (7.4-10.4); MONO % 7.6 % (0-9); PLATELET COUNT 544 K/uL (130-400); RED BLOOD COUNT 5.64 M/uL (3.80-5.40); WHITE BLOOD COUNT W/O DIFF 10.7 K/uL (4.2-12.2)
--- NOTE | 2018-06-30 17:30 | Emergency Department Record ---
History of Present Illness - General Chief complaint: Nausea, Vomiting, Diarrhea Stated complaint: VOMITING Time Seen by Provider: 06/30/18 16:59 Source: Patient Mode of Arrival: Ambulatory Limitations: No limitations - History of Present Illness Initial comments: pt has been sick for 3 wks w vomiting, coughing, weakness, pain and swelling in her legs. she has a hx of clots and pe. she is being put on the list for lung transplant MD complaint: Nausea, Vomiting Onset/Timin -: Week(s) Description of Vomiting: Bilious, Food contents, Watery, Other Description of Diarrhea: Water Severity scale (1-10): 10 Associated Symptoms: Cough, Loss of appetite, Malaise, Nausea/vomiting, Weakness - Related Data Previous Rx's Medication Instructions Recorded Nitrofurantoin [place] [Macrobid] 100 mg PO BID #10 capsule 06/30/18 Allergies Allergy/AdvReac Type Severity Reaction Status Date / Time Sulfa (Sulfonamide Allergy Intermediate HIVES Unverified 04/19/18 10:57 Antibiotics) codeine Allergy Mild VOMITING Unverified 04/19/18 10:57 morphine Allergy Mild VOMITING Unverified 04/19/18 10:57 aspirin [ASPIRIN] Allergy Unknown GI UPSET Unverified 04/19/18 10:57 cephalexin monohydrate Allergy Unknown "BLEEDING Unverified 04/19/18 10:57 [From KEFLEX] FROM EARS AND NOSE" strawberry Allergy DIFFICULTY Unverified 04/19/18 10:57 BREATHING venom-honey bee Allergy ANAPHYLAXIS Unverified 04/19/18 10:57 venom-wasp Allergy ANAPHYLAXIS Unverified 04/19/18 10:57 Travel Screening - Travel/Exposure Within Last 30 Days Have you traveled within the last 30 days?: No - Travel/Exposure Within Last Year Have you traveled outside the [place] in the last year?: No - Additonal Travel Details Have you been exposed to anyone with a communicable illness?: No - Travel Symptoms Symptom Screening: Diarrhea, Vomiting, Lack of Appetite Review of Systems Reviewed: No additional complaints except as noted below Constitutional: Reports: As per HPI. Denies: Chills, Fever, Malaise, Night sweats, Weakness, Weight change Eyes: Reports: As per HPI. Denies: Eye discharge, Eye pain, Photophobia, Vision change ENT: Reports: As per HPI. Denies: Congestion, Dental pain, Ear pain, Epistaxis , Hearing loss, Throat pain Respiratory: Reports: As per HPI, Cough. Denies: Dyspnea, Hemoptysis, Stridor, Wheezes Cardiovascular: Reports: As per HPI. Denies: Arrhythmia, Chest pain, Dyspnea on exertion, Edema, Murmurs, Orthopnea, Palpitations, Paroxysmal nocturnal dyspnea, Rheumatic Fever, Syncope Endocrine: Reports: As per HPI. Denies: Fatigue, Heat or cold intolerance, Polydipsia, Polyuria Gastrointestinal: Reports: As per HPI, Nausea, Vomiting. Denies: Abdominal pain , Constipation, Diarrhea, Hematemesis, Hematochezia, Melena Genitourinary: Reports: As per HPI. Denies: Abnormal menses, Discharge, Dyspareunia, Dysuria, Frequency, Hematuria, Incontinence, Retention, Urgency Musculoskeletal: Reports: As per HPI. Denies: Arthralgia, Back pain, Gout, Joint swelling, Myalgia, Neck pain Skin: Reports: As per HPI. Denies: Bruising, Change in color, Change in hair/ nails, Lesions, Pruritus, Rash Neurological: Reports: As per HPI. Denies: Abnormal gait, Confusion, Headache, Numbness, Paresthesias, Seizure, Tingling, Tremors, Vertigo, Weakness Psychiatric: Reports: As per HPI. Denies: Anxiety, Auditory hallucinations, Depression, Homicidal thoughts, Suicidal thoughts, Visual hallucinations Hematological/Lymphatic: Reports: As per HPI. Denies: Anemia, Blood Clots, Easy bleeding, Easy bruising, Swollen glands Past Medical History - SOCIAL HISTORY Smoking Status: Former smoker Alcohol Use: None Drug Use: None - RESPIRATORY Hx Respiratory Disorders: Yes Hx Asthma: Yes Hx Bronchitis: Yes Hx COPD: Yes Hx Pneumonia: Yes Comment:: home o2 at 2.5/24 hours, HX PE - CARDIOVASCULAR Hx Cardio Disorders: Yes Hx Abnormal EKG: No Hx Cardiac Cath: Yes Hx Chest Pain: No Hx CHF: Yes (2017) Hx Deep Vein Thrombosis: Yes (right leg and hx of PE) Hx Edema: Yes Hx Hypotension: Yes Hx Irregular Heartbeat: No Hx Palpitations: No Comment:: "HIGH HEART RATE" - NEURO Hx Neuro Disorders: Yes Hx Headaches: Yes Hx Neuropathy: Yes (bilateral feet/hands) Hx Weakness: Yes (legs) - GI Hx GI Disorders: Yes Hx Reflux: Yes Hx Irritable Bowel: Yes Hx Nausea/Vomiting: Yes (nausea all the time) Hx Wt Loss/Wt Gain: Yes (gains weight) Hx of Polyps: Yes Comment:: diarrhea - Hx Genitourinary Disorders: Yes Hx UTI: Yes - ENDOCRINE Hx Endocrine Disorders: Yes Hx Diabetes: Yes - MUSCULOSKELETAL Hx Musculoskeletal Disorders: Yes Hx Arthritis: Yes (OSTEOARTHRITIS, and RA) Hx Fibromyalgia: Yes Hx Osteoporosis: Yes Comment:: left shoulder tear, unable to have surgery due to the arthritis - PSYCH Hx Psych Problems: Yes Hx Anxiety: Yes Hx Depression: Yes - HEMATOLOGY/ONCOLOGY Hx Hematology/Oncology Disorders: Yes Hx Anemia: Yes Family Medical History Any Significant Family History?: No Hx Cancer: Father, Grandparents *Cancer Comment: aunt BONE CANCER. colon/brain GRANDFATHER, LUNG CA WITH FATHER *Diabetes Comment: aunt Hx Heart Disease: Grandparents *HTN Comment: uncles Physical Exam - General General Appearance: Alert, Oriented x3, Cooperative, Mild distress - Head Head exam: Normal inspection - Eye Eye exam: Normal appearance, PERRL, EOMI Pupils: Normal accommodation - ENT ENT exam: Normal exam, Mucous membranes moist, Normal external ear exam, Normal orophraynx Ear exam: Normal external inspection. negative: External canal tenderness Nasal Exam: Normal inspection. negative: Discharge, Sinus tenderness Mouth exam: Normal external inspection, Tongue normal Teeth exam: Normal inspection. negative: Dental caries Throat exam: Normal inspection. negative: Tonsillar erythema, Tonsillar exudate - Neck Neck exam: Normal inspection, Full ROM. negative: Tenderness - Respiratory Respiratory exam: Rales, Respiratory distress - Cardiovascular Cardiovascular Exam: Regular rate, Normal rhythm, Normal heart sounds - GI/Abdominal GI/Abdominal exam: Soft, Normal bowel sounds. negative: Tenderness - Rectal Rectal exam: Deferred - exam: Deferred - Extremities Extremities exam: Calf tenderness, Full ROM, Normal capillary refill. negative : Tenderness - Back Back exam: Reports: Normal inspection, Full ROM. Denies: Muscle spasm, Rash noted, Tenderness - Neurological Neurological exam: Alert, CN II-XII intact, Normal gait, Oriented X3 - Psychiatric Psychiatric exam: Normal affect, Normal mood - Skin Skin exam: Dry, Intact, Normal color, Warm Course Vital Signs 06/30/18 16:12 Temperature 98.7 F Pulse Rate 72 Respiratory 18 Rate Blood Pressure 173/90 Pulse Ox 98 Medical Decision Making - Lab Data Result diagrams: 06/30/18 17:22 06/30/18 17:22 Disposition Disposition: Discharge Clinical Impression: Weakness UTI (urinary tract infection) Qualifiers: Urinary tract infection type: acute cystitis Hematuria presence: without hematuria Qualified Code(s): N30.00 - Acute cystitis without hematuria Vomiting Qualifiers: Vomiting type: unspecified Vomiting Intractability: non-intractable Nausea presence: with nausea Qualified Code(s): R11.2 - Nausea with vomiting, unspecified Disposition: Home, Self-Care Condition: (1) Good Instructions: Acute Nausea and Vomiting (ED), Urinary Tract Infection in Women (ED) Additional Instructions: follow up with family doctor on tuesday. return sooner if worse. Prescriptions: Nitrofurantoin [place] [Macrobid] 100 mg PO BID #10 capsule Forms: Patient Portal Access Quality - Quality Measures Quality Measures: N/A - Blood Pressure Screening Does Patient Have Any of the Following: Active Dx of HTN Blood Pressure Classification: Hypertensive Reading Systolic Measurement: 173 Diastolic Measurement: 90 Screening for High Blood Pressure: Patient Exclusion, Hx of HTN [G9744]
[2018-06-30 17:38] LABS: RED CELL DISTRIBUTION WIDTH 21.5 % (11.5-14.5)
[2018-06-30 17:40] LABS: BLOOD UREA NITROGEN 11 mg/dL (6-20); CREATININE 0.5 mg/dL (0.5-0.9); EST GLOMERULAR FILTRATION RATE > 60 mL/min
[2018-06-30 17:41] LABS: TOTAL PROTEIN 7.3 g/dL (6.6-8.7)
[2018-06-30 17:43] LABS: GLUCOSE,RANDOM 92 mg/dL (74-109)
[2018-06-30 17:45] LABS: ALB/GLOB RATIO 1.1 (1.1-1.8); ALBUMIN 3.8 g/dL (4.0-5.0); ALT/SGPT 8 U/L (<33); AST/SGOT 11 U/L (10.0-35.0)
[2018-06-30 17:46] LABS: ALKALINE PHOSPHATASE 97 U/L (45-87)
[2018-06-30 19:12] LABS: URINE APPEARANCE SL CLOUDY; URINE BILIRUBIN SMALL (NEGATIVE); URINE BLOOD NEGATIVE (NEGATIVE); URINE COLOR YELLOW; URINE GLUCOSE (UA) NEGATIVE (NEGATIVE); URINE KETONE TRACE (NEGATIVE); URINE LEUKOCYTE ESTERASE MODERATE (NEGATIVE); URINE NITRITE NEGATIVE (NEGATIVE); URINE PROTEIN TRACE (NEGATIVE)
[2018-06-30 19:19] LABS: URINE BACTERIA FEW; URINE EPITHELIAL CELLS 0 - 2 (FEW); URINE RBC NONE SEEN (NONE SEEN); URINE WBC 16 - 20 (0-2/hpf)
--- NOTE | 2018-07-04 06:38 | US VENOUS DOPPLER REPORT ---
DATE: 06/30/2018. EXAM: VENOUS DOPPLER, LOWER EXTREMITY, LEFT. HISTORY: Pain and swelling with a history of deep venous thromboses. TECHNIQUE: Complete duplex Doppler evaluation with color and spectra Doppler of the left lower extremity and Grayscale with and without compression. FINDINGS: No evidence for deep venous thrombosis from the left common femoral vein through the calf. There is normal respiratory phasicity in the common femoral vein spectral waveform. IMPRESSION: NO EVIDENCE FOR LEFT LOWER EXTREMITY DEEP VENOUS THROMBOSIS. JOB [facility]BER: [id number] [facility]
--- NOTE | 2018-07-04 06:42 | US VENOUS DOPPLER REPORT ---
DATE: 06/30/2018. EXAM: VENOUS DOPPLER, LOWER EXTREMITY, RIGHT. HISTORY: Pain and swelling with a history of deep venous thromboses. TECHNIQUE: Complete duplex Doppler evaluation of the right lower extremity with color and spectral Doppler and Grayscale with and without compression. FINDINGS: No evidence for deep venous thrombosis from the right common femoral vein through to the calf. Normal respiratory phasicity is present in the common femoral vein spectral waveform. IMPRESSION: NO EVIDENCE FOR RIGHT LOWER EXTREMITY DEEP VENOUS THROMBOSIS. J[facility]BER: [id number] [facility]
== END 2018-06-30 19:37 | disposition home or self-care (01) ==
LOC: ER 15:55
DX: N30.00 Acute cystitis without hematuria (principal); R53.1 Weakness; R11.2 Nausea with vomiting, unspecified; M79.662 Pain in left lower leg; M79.661 Pain in right lower leg; F17.210 Nicotine dependence, cigarettes, uncomplicated
CPT/HCPCS: 99284 ×2; 96374; 83690; 85025; 80053; 81001; 84484; 85379; 93971 ×2; J2405; J7030

== ENCOUNTER 2018-07-21 12:57 | Inpatient (IN) | payer MEDICARE, MEDICAID ==
[2018-07-21] MEDS ORDERED: ACETAMINOPHEN 1,000 MG/100 ML BTL IVPB ONE (14:11)
[2018-07-21 14:46] LABS: HEMATOCRIT 36.1 % (35.0-47.0); MEAN CELL VOLUME 63.1 fl (81-97); MEAN CORPUSCULAR HEMOGLOBIN 19.2 pg (27-33); MEAN CORPUSCULAR HGB CONC 30.5 g/dl (32-36); MEAN PLATELET VOLUME 8.7 fl (7.4-10.4); PLATELET COUNT 471 K/uL (130-400); RED BLOOD COUNT 5.72 M/uL (3.80-5.40); RED CELL DISTRIBUTION WIDTH 21.6 % (11.5-14.5); WHITE BLOOD COUNT W/O DIFF 19.1 K/uL (4.2-12.2)
[2018-07-21 14:46] LABS: URINE BILIRUBIN MODERATE (NEGATIVE); URINE BLOOD NEGATIVE (NEGATIVE); URINE COLOR YELLOW; URINE GLUCOSE (UA) NEGATIVE (NEGATIVE); URINE LEUKOCYTE ESTERASE TRACE (NEGATIVE); URINE NITRITE NEGATIVE (NEGATIVE)
[2018-07-21 14:54] LABS: URINE APPEARANCE SL CLOUDY; URINE KETONE 80 mg/dL (NEGATIVE)
[2018-07-21 14:55] LABS: URINE RBC 0 - 2 (NONE SEEN)
[2018-07-21 14:56] LABS: URINE BACTERIA 2+; URINE MUCUS LIGHT
[2018-07-21 15:04] LABS: INFLUENZA A NEGATIVE (NEGATIVE); INFLUENZA B NEGATIVE (NEGATIVE)
[2018-07-21 15:05] LABS: BLOOD UREA NITROGEN 10 mg/dL (6-20); CREATININE 0.5 mg/dL (0.5-0.9); EST GLOMERULAR FILTRATION RATE > 60 mL/min; TOTAL PROTEIN 7.7 g/dL (6.6-8.7)
[2018-07-21 15:07] LABS: ANISOCYTOSIS 2+; GLUCOSE,RANDOM 98 mg/dL (74-109); MICROCYTOSIS 1+
[2018-07-21 15:10] LABS: ALB/GLOB RATIO 0.9 (1.1-1.8); ALBUMIN 3.7 g/dL (4.0-5.0); ALKALINE PHOSPHATASE 106 U/L (35-104); ALT/SGPT 14 U/L (<33); AST/SGOT 15 U/L (10.0-35.0)
--- NOTE | 2018-07-21 16:27 | Emergency Department Record ---
History of Present Illness - General Chief Complaint: Fever Stated Complaint: VOMITING,FEVER Time Seen by Provider: 07/21/18 14:00 Source: Patient Mode of Arrival: Ambulatory Limitations: No limitations - History of Present Illness Initial Comments: pt has been running a fever, coughing productive green, aches, weakness Complaint: Fever, Malaise, Weakness Onset/Timin -: Days(s) Associated Symptoms: Cough, Nausea, Shortness of breath Treatments Prior to Arrival: Other Treatment Prior to Arrival Comment:: Courtney mendez this AM - Related Data Allergies Allergy/AdvReac Type Severity Reaction Status Date / Time Sulfa (Sulfonamide Allergy Intermediate HIVES Verified 07/21/18 13:22 Antibiotics) codeine Allergy Mild VOMITING Verified 07/21/18 13:22 morphine Allergy Mild VOMITING Verified 07/21/18 13:22 aspirin [ASPIRIN] Allergy Unknown GI UPSET Verified 07/21/18 13:22 cephalexin monohydrate Allergy Unknown "BLEEDING Verified 07/21/18 13:22 [From KEFLEX] FROM EARS AND NOSE" strawberry Allergy DIFFICULTY Verified 07/21/18 13:22 BREATHING venom-honey bee Allergy ANAPHYLAXIS Verified 07/21/18 13:22 venom-wasp Allergy ANAPHYLAXIS Verified 07/21/18 13:22 Travel Screening - Travel/Exposure Within Last 30 Days Have you traveled within the last 30 days?: No - Travel/Exposure Within Last Year Have you traveled outside the [place] in the last year?: No - Additonal Travel Details Have you been exposed to anyone with a communicable illness?: No - Travel Symptoms Symptom Screening: None Review of Systems Reviewed: No additional complaints except as noted below Constitutional: Reports: As per HPI, Chills, Fever, Malaise, Weakness. Denies: Night sweats, Weight change Eyes: Reports: As per HPI. Denies: Eye discharge, Eye pain, Photophobia, Vision change ENT: Reports: As per HPI. Denies: Congestion, Dental pain, Ear pain, Epistaxis , Hearing loss, Throat pain Respiratory: Reports: As per HPI, Cough. Denies: Dyspnea, Hemoptysis, Stridor, Wheezes Cardiovascular: Reports: As per HPI. Denies: Arrhythmia, Chest pain, Dyspnea on exertion, Edema, Murmurs, Orthopnea, Palpitations, Paroxysmal nocturnal dyspnea, Rheumatic Fever, Syncope Endocrine: Reports: As per HPI, Fatigue. Denies: Heat or cold intolerance, Polydipsia, Polyuria Gastrointestinal: Reports: As per HPI. Denies: Abdominal pain, Constipation, Diarrhea, Hematemesis, Hematochezia, Melena, Nausea, Vomiting Genitourinary: Reports: As per HPI. Denies: Abnormal menses, Discharge, Dyspareunia, Dysuria, Frequency, Hematuria, Incontinence, Retention, Urgency Musculoskeletal: Reports: As per HPI. Denies: Arthralgia, Back pain, Gout, Joint swelling, Myalgia, Neck pain Skin: Reports: As per HPI. Denies: Bruising, Change in color, Change in hair/ nails, Lesions, Pruritus, Rash Neurological: Reports: As per HPI. Denies: Abnormal gait, Confusion, Headache, Numbness, Paresthesias, Seizure, Tingling, Tremors, Vertigo, Weakness Psychiatric: Reports: As per HPI. Denies: Anxiety, Auditory hallucinations, Depression, Homicidal thoughts, Suicidal thoughts, Visual hallucinations Hematological/Lymphatic: Reports: As per HPI. Denies: Anemia, Blood Clots, Easy bleeding, Easy bruising, Swollen glands Past Medical History - SOCIAL HISTORY Smoking Status: Former smoker Alcohol Use: None Drug Use: None - RESPIRATORY Hx Respiratory Disorders: Yes Hx Asthma: Yes Hx Bronchitis: Yes Hx COPD: Yes Hx Pneumonia: Yes Comment:: home o2 at 2.5/24 hours, HX PE - CARDIOVASCULAR Hx Cardio Disorders: Yes Hx Abnormal EKG: No Hx Cardiac Cath: Yes Hx Chest Pain: No Hx CHF: Yes (2017) Hx Deep Vein Thrombosis: Yes (right leg and hx of PE) Hx Edema: Yes Hx Hypotension: Yes Hx Irregular Heartbeat: No Hx Palpitations: No Comment:: "HIGH HEART RATE" - NEURO Hx Neuro Disorders: Yes Hx Headaches: Yes Hx Neuropathy: Yes (bilateral feet/hands) Hx Weakness: Yes (legs) - GI Hx GI Disorders: Yes Hx Reflux: Yes Hx Irritable Bowel: Yes Hx Nausea/Vomiting: Yes (nausea all the time) Hx Wt Loss/Wt Gain: Yes (gains weight) Hx of Polyps: Yes Comment:: diarrhea - Hx Genitourinary Disorders: Yes Hx UTI: Yes - ENDOCRINE Hx Endocrine Disorders: Yes Hx Diabetes: Yes - MUSCULOSKELETAL Hx Musculoskeletal Disorders: Yes Hx Arthritis: Yes (OSTEOARTHRITIS, and RA) Hx Fibromyalgia: Yes Hx Osteoporosis: Yes Comment:: left shoulder tear, unable to have surgery due to the arthritis - PSYCH Hx Psych Problems: Yes Hx Anxiety: Yes Hx Depression: Yes - HEMATOLOGY/ONCOLOGY Hx Hematology/Oncology Disorders: Yes Hx Anemia: Yes Family Medical History Any Significant Family History?: Yes Hx Cancer: Father, Grandparents *Cancer Comment: aunt BONE CANCER. colon/brain GRANDFATHER, LUNG CA WITH FATHER *Diabetes Comment: aunt Hx Heart Disease: Grandparents *HTN Comment: uncles Physical Exam - General General Appearance: Alert, Oriented x3, Cooperative, Mild distress - Head Head exam: Normal inspection - Eye Eye exam: Normal appearance, PERRL, EOMI Pupils: Normal accommodation - ENT ENT exam: Normal exam, Mucous membranes dry, Normal external ear exam, Normal orophraynx Ear exam: Normal external inspection. negative: External canal tenderness Nasal Exam: Normal inspection. negative: Discharge, Sinus tenderness Mouth exam: Normal external inspection, Tongue normal Teeth exam: Normal inspection. negative: Dental caries Throat exam: Normal inspection. negative: Tonsillar erythema, Tonsillar exudate - Neck Neck exam: Normal inspection, Full ROM. negative: Tenderness - Respiratory Respiratory exam: Normal lung sounds bilaterally. negative: Respiratory distress - Cardiovascular Cardiovascular Exam: Regular rate, Normal rhythm, Normal heart sounds - GI/Abdominal GI/Abdominal exam: Soft, Normal bowel sounds. negative: Tenderness - Rectal Rectal exam: Deferred - exam: Deferred - Extremities Extremities exam: Normal inspection, Full ROM, Normal capillary refill. negative: Tenderness - Back Back exam: Reports: Normal inspection, Full ROM. Denies: Muscle spasm, Rash noted, Tenderness - Neurological Neurological exam: Alert, CN II-XII intact, Normal gait, Oriented X3 - Psychiatric Psychiatric exam: Normal affect, Normal mood - Skin Skin exam: Dry, Intact, Normal color, Warm Course Vital Signs 07/21/18 13:30 Temperature 102.1 F H Pulse Rate 88 Respiratory 20 Rate Blood Pressure 140/78 Pulse Ox 95 Medical Decision Making - Lab Data Result diagrams: 07/21/18 14:35 07/21/18 14:35 Lab Results 07/21/18 07/21/18 07/21/18 Range/Units 14:35 14:35 14:35 WBC 19.1 H (4.2-12.2) K/uL RBC 5.72 H (3.80-5.40) M/uL Hgb 11.0 L (11.6-16.0) gm/dl Hct 36.1 (35.0-47.0) % MCV 63.1 L (81-97) fl MCH 19.2 L (27-33) pg MCHC 30.5 L (32-36) g/dl RDW 21.6 H (11.5-14.5) % Plt Count 471 H (130-400) K/uL MPV 8.7 (7.4-10.4) fl Neutrophils % 83.0 H (47-80) % Eosinophils % Not Reportable Basophils % Not Reportable Lymphocytes 9.0 L (16-45) % Monocytes 8.0 (0-9) % Anisocytosis 2+ Microcytosis 1+ Sodium 139 (136-145) mmol/L Potassium 3.9 (3.4-4.5) mmol/L Chloride 98 (98-107) mmol/L Carbon Dioxide 24.0 (22-29) mmol/L Anion Gap 17.0 H (7-16) BUN 10 (6-20) mg/dL Creatinine 0.5 (0.5-0.9) mg/dL Estimated GFR > 60 mL/min Random Glucose 98 (74-109) mg/dL Lactic Acid Cancelled Calcium 8.6 (8.6-10.0) mg/dL Total Bilirubin 0.30 (0.2-1.0) mg/dL AST 15 (10.0-35.0) U/L ALT 14 (<33) U/L Alkaline Phosphatase 106 H (35-104) U/L Total Protein 7.7 (6.6-8.7) g/dL Albumin 3.7 L (4.0-5.0) g/dL Globulin 4.0 (1.4-4.8) gm/dL Albumin/Globulin Ratio 0.9 L (1.1-1.8) Urine Color Urine Appearance Urine pH (5.0-8.0) Ur Specific [place] (1.002-1.030) Urine Protein (NEGATIVE) Urine Glucose (UA) (NEGATIVE) Urine Ketones (NEGATIVE) Urine Blood (NEGATIVE) Urine Nitrite (NEGATIVE) Urine Bilirubin (NEGATIVE) Urine Urobilinogen (0.20 - 1.00) E.U./dL Ur Leukocyte Esterase (NEGATIVE) Urine RBC (NONE SEEN) Urine WBC (0-2/hpf) Ur Epithelial Cells (FEW) Urine Bacteria Urine Mucus Influenza Type A Ag Negative (NEGATIVE) Influenza Type B Ag Negative (NEGATIVE) 07/21/18 07/21/18 Range/Units 14:50 15:35 WBC (4.2-12.2) K/uL RBC (3.80-5.40) M/uL Hgb (11.6-16.0) gm/dl Hct (35.0-47.0) % MCV (81-97) fl MCH (27-33) pg MCHC (32-36) g/dl RDW (11.5-14.5) % Plt Count (130-400) K/uL MPV (7.4-10.4) fl Neutrophils % (47-80) % Eosinophils % Basophils % Lymphocytes (16-45) % Monocytes (0-9) % Anisocytosis Microcytosis Sodium (136-145) mmol/L Potassium (3.4-4.5) mmol/L Chloride (98-107) mmol/L Carbon Dioxide (22-29) mmol/L Anion Gap (7-16) BUN (6-20) mg/dL Creatinine (0.5-0.9) mg/dL Estimated GFR mL/min Random Glucose (74-109) mg/dL Lactic Acid 1.2 Calcium (8.6-10.0) mg/dL Total Bilirubin (0.2-1.0) mg/dL AST (10.0-35.0) U/L ALT (<33) U/L Alkaline Phosphatase (35-104) U/L Total Protein (6.6-8.7) g/dL Albumin (4.0-5.0) g/dL Globulin (1.4-4.8) gm/dL Albumin/Globulin Ratio (1.1-1.8) Urine Color Yellow Urine Appearance Sl cloudy Urine pH 6.0 (5.0-8.0) Ur Specific [place] >= 1.030 (1.002-1.030) Urine Protein 100 mg/dl H (NEGATIVE) Urine Glucose (UA) Negative (NEGATIVE) Urine Ketones 80 mg/dl H (NEGATIVE) Urine Blood Negative (NEGATIVE) Urine Nitrite Negative (NEGATIVE) Urine Bilirubin Moderate H (NEGATIVE) Urine Urobilinogen 2.0 H (0.20 - 1.00) E.U./dL Ur Leukocyte Esterase Trace H (NEGATIVE) Urine RBC 0 - 2 (NONE SEEN) Urine WBC 10 - 15 (0-2/hpf) Ur Epithelial Cells 3 - 6 (FEW) Urine Bacteria 2+ Urine Mucus Light Influenza Type A Ag (NEGATIVE) Influenza Type B Ag (NEGATIVE) Disposition Disposition: Admit Clinical Impression: Pyelonephritis, acute, Bronchitis, Thrush, oral Disposition: Still a Patient at [facility] Decision to Admit: Admit from ER Decision to Admit Date: 07/21/18 Decision to Admit Time: 16:30 Quality - Quality Measures Quality Measures: N/A - Blood Pressure Screening Does Patient Have Any of the Following: Active Dx of HTN Blood Pressure Classification: Hypertensive Reading Systolic Measurement: 140 Diastolic Measurement: 78 Screening for High Blood Pressure: Patient Exclusion, Hx of HTN [[id number]]
[2018-07-21] MEDS ORDERED: ACETAMINOPHEN 500 MG TABLET PO PRN (17:27)
[2018-07-21] MEDS ORDERED: IPRATROPIUM/ALBUTEROL (0.5MG/3MG) NEB INH PRN (17:27)
[2018-07-21] MEDS ORDERED: Non-Formulary MISC (Sucralfate [Carafate] 1 GM) PO PRN (17:27)
[2018-07-21] MEDS ORDERED: ALBUTEROL SULFATE (0.083%) 2.5 MG/3 ML NEB INH PRN (17:27)
[2018-07-21] MEDS ORDERED: PILOCARPINE HCL 5 MG PO PRN (17:27)
[2018-07-21] MEDS ORDERED: HYDROCODONE/APAP 7.5/325MG TABLET PO SCH (17:27)
[2018-07-21] MEDS: CIPROFLOXACIN LACTATE/D5W 400 MG/200 ML BAG IVPB ONE ×2 (17:47→18:03)
[2018-07-21] MEDS: CIPROFLOXACIN LACTATE/D5W 400 MG/200 ML BAG IVPB SCH (17:48)
[2018-07-21] MEDS ORDERED: FLUCONAZOLE 100 MG TABLET PO SCH (18:00)
[2018-07-21] MEDS: ONDANSETRON 4 MG ODT TABLET SL PRN ×2 (18:05→23:25)
[2018-07-21] MEDS: NYSTATIN 100,000 UNITS/ML 5ML CUP PO SCH ×2 (18:05→21:45)
[2018-07-21] MEDS: DICYCLOMINE HCL 10 MG CAPSULE PO SCH ×2 (19:00→21:44)
[2018-07-21] MEDS: HYDROXYZINE PAMOATE 25 MG CAPSULE PO SCH ×3 (19:00→23:26)
[2018-07-21] MEDS ORDERED: ACETAMINOPHEN 325 MG TAB PO PRN (19:49)
[2018-07-21] MEDS: VERAPAMIL ER 120 MG TABLET PO SCH (21:44)
[2018-07-21] MEDS: SIMVASTATIN 20 MG TABLET PO SCH (21:44)
[2018-07-21] MEDS: PREDNISONE 10 MG TAB PO SCH (21:44)
[2018-07-21] MEDS: PANTOPRAZOLE SODIUM 40 MG TABLET PO SCH (21:45)
[2018-07-21] MEDS: FLUOXETINE HCL 20 MG CAPSULE PO SCH (21:45)
[2018-07-21] MEDS: TRAZODONE 50 MG TABLET PO SCH (21:45)
[2018-07-21] MEDS: APIXABAN 5MG TABLET PO SCH (21:45)
[2018-07-21] MEDS ORDERED: TERBINAFINE HCL TP SCH (22:00)
[2018-07-21] MEDS ORDERED: BECLOMETHASONE DIPROPIONATE IH SCH (22:00)
[2018-07-21] MEDS: LEVEMIR FLEXTOUCH 100 UNIT/ML INSULIN PEN SQ SCH (22:04)
[2018-07-21] MEDS: HYDROCODONE/APAP 7.5/325MG TABLET PO PRN (22:07)
[2018-07-22] MEDS: HYDROCODONE/APAP 7.5/325MG TABLET PO PRN ×3 (03:47→22:22)
[2018-07-22] MEDS: HYDROXYZINE PAMOATE 25 MG CAPSULE PO SCH ×4 (06:15→22:27)
[2018-07-22] MEDS: CIPROFLOXACIN LACTATE/D5W 400 MG/200 ML BAG IVPB SCH ×2 (06:15→18:38)
[2018-07-22 06:31] LABS: HEMATOCRIT 34.4 % (35.0-47.0); HEMOGLOBIN 10.3 gm/dl (11.6-16.0); MEAN CELL VOLUME 63.6 fl (81-97); MEAN CORPUSCULAR HGB CONC 29.9 g/dl (32-36); MEAN PLATELET VOLUME 9.1 fl (7.4-10.4); PLATELET COUNT 437 K/uL (130-400); RED BLOOD COUNT 5.41 M/uL (3.80-5.40); RED CELL DISTRIBUTION WIDTH 21.4 % (11.5-14.5)
[2018-07-22 06:49] LABS: ALB/GLOB RATIO 0.9 (1.1-1.8); ALBUMIN 3.4 g/dL (4.0-5.0); ALKALINE PHOSPHATASE 109 U/L (35-104); ALT/SGPT 12 U/L (<33); AST/SGOT 15 U/L (10.0-35.0); BLOOD UREA NITROGEN 9 mg/dL (6-20); CREATININE 0.5 mg/dL (0.5-0.9); EST GLOMERULAR FILTRATION RATE > 60 mL/min; GLUCOSE,RANDOM 118 mg/dL (74-109); TOTAL PROTEIN 7.2 g/dL (6.6-8.7)
[2018-07-22 06:55] LABS: ANISOCYTOSIS 2+; MICROCYTOSIS 1+; PLATELET ESTIMATE INCREASED (NORMAL)
[2018-07-22] MEDS: APIXABAN 5MG TABLET PO SCH ×2 (09:32→22:26)
[2018-07-22] MEDS: DICYCLOMINE HCL 10 MG CAPSULE PO SCH ×4 (09:32→22:25)
[2018-07-22] MEDS: PANTOPRAZOLE SODIUM 40 MG TABLET PO SCH ×2 (09:32→22:26)
[2018-07-22] MEDS: PREDNISONE 10 MG TAB PO SCH ×2 (09:34→18:35)
[2018-07-22] MEDS: NYSTATIN 100,000 UNITS/ML 5ML CUP PO SCH ×4 (09:35→22:26)
[2018-07-22] MEDS: BREO (FLUTICASONE/VILANTEROL) 200MCG/25MCG INHALER INH SCH (09:53)
[2018-07-22] MEDS: UMECLIDINIUM BROMIDE (INCRUSE) 62.5MCG IH SCH (09:53)
[2018-07-22] MEDS ORDERED: HYDROXYCHLOROQUINE SULFATE 200 MG TABLET PO SCH ×2 (10:00→22:00)
[2018-07-22] MEDS ORDERED: SUCRALFATE 1 G/10 ML UD PO PRN (10:00)
[2018-07-22] MEDS ORDERED: ROFLUMILAST 500 MCG PO SCH (10:00)
--- NOTE | 2018-07-22 13:12 | History & Physical ---
History of Present Illness - Date of Service Date of Service for History & Physical: 07/22/18 - History of Present Illness Admitting Diagnosis: urosepsis, bronchitis, oral rubi History of Present Illness: Inge Adkins is a 58 y.o. F who presented to the ED with c/o fever, coughing up green sputum, aches, nausea, shortness of breath and weakness x 1 week. Was so nauseated over the last three days that she went without taking her medications, including her Eliquis. Does have a hx of PE. Has multiple medical conditions for which she reports seeing several specialists. Follows with Dr. Estevan Patton ([facility] who has her taking 10mg Prednisone daily for her breathing. She reports that he has her take Cipro daily for 30 days on and then off for 30 days. ED Course Vitals: T 102.1, P 88, R 20, BP 140/78, SpO2 95% on 2.5L O2 WBC 19.1, Neutrophils 83% Influenza Swab Negative U/A: Trace Leukocytes, Urine WBC 10-15, bacteria 2+ CXR: Unremarkable 07/22/18 1200 Sitting up in bed, alert and appropriate. Family members at bedside. Is feeling marginally better since yesterday. Reports left sided flank pain. Nausea has improved. Feeling more "wheezy" than normal. Travel Screening - Travel/Exposure Within Last 30 Days Have you traveled within the last 30 days?: No - Travel/Exposure Within Last Year Have you traveled outside the [place] in the last year?: No - Additonal Travel Details Have you been exposed to anyone with a communicable illness?: No - Travel Symptoms Symptom Screening: None Review of Systems Reviewed: No additional complaints except as noted below Constitutional: Reports: As per HPI, Chills, Malaise, Weakness. Denies: Night sweats, Weight change Eyes: Reports: As per HPI. Denies: Eye discharge, Eye pain, Photophobia, Vision change ENT: Reports: As per HPI. Denies: Congestion, Dental pain, Ear pain, Epistaxis , Hearing loss, Throat pain Respiratory: Reports: As per HPI, Cough, Wheezes. Denies: Dyspnea, Hemoptysis, Stridor Cardiovascular: Reports: As per HPI. Denies: Arrhythmia, Chest pain, Dyspnea on exertion, Edema, Murmurs, Orthopnea, Palpitations, Paroxysmal nocturnal dyspnea, Rheumatic Fever, Syncope Endocrine: Reports: As per HPI, Fatigue. Denies: Heat or cold intolerance, Polydipsia, Polyuria Gastrointestinal: Reports: As per HPI, Nausea. Denies: Abdominal pain, Constipation, Diarrhea, Hematemesis, Hematochezia, Melena, Vomiting Genitourinary: Reports: As per HPI. Denies: Abnormal menses, Discharge, Dyspareunia, Dysuria, Frequency, Hematuria, Incontinence, Retention, Urgency Musculoskeletal: Reports: As per HPI. Denies: Arthralgia, Back pain, Gout, Joint swelling, Myalgia, Neck pain Skin: Reports: As per HPI. Denies: Bruising, Change in color, Change in hair/ nails, Lesions, Pruritus, Rash Neurological: Reports: As per HPI. Denies: Abnormal gait, Confusion, Headache, Numbness, Paresthesias, Seizure, Tingling, Tremors, Vertigo, Weakness Psychiatric: Reports: As per HPI. Denies: Anxiety, Auditory hallucinations, Depression, Homicidal thoughts, Suicidal thoughts, Visual hallucinations Hematological/Lymphatic: Reports: As per HPI, Blood Clots. Denies: Anemia, Easy bleeding, Easy bruising, Swollen glands Past Medical History - SOCIAL HISTORY Smoking Status: Former smoker Alcohol Use: None Drug Use: None - RESPIRATORY Hx Respiratory Disorders: Yes Hx Asthma: Yes Hx Bronchitis: Yes Hx COPD: Yes Hx Pneumonia: Yes Comment:: home o2 at 2.5/24 hours, HX PE - CARDIOVASCULAR Hx Cardio Disorders: Yes Hx Abnormal EKG: No Hx Cardiac Cath: Yes Hx Chest Pain: No Hx CHF: Yes (2017) Hx Deep Vein Thrombosis: Yes (right leg and hx of PE) Hx Edema: Yes Hx Hypotension: Yes Hx Irregular Heartbeat: No Hx Palpitations: Yes Comment:: "HIGH HEART RATE" - NEURO Hx Neuro Disorders: Yes Hx Headaches: Yes Hx Neuropathy: Yes (bilateral feet/hands) Hx Weakness: Yes (legs) - GI Hx GI Disorders: Yes Hx Reflux: Yes Hx Irritable Bowel: Yes Hx Nausea/Vomiting: Yes (nausea all the time) Hx Wt Loss/Wt Gain: Yes (gains weight) Hx of Polyps: Yes Comment:: diarrhea - Hx Genitourinary Disorders: Yes Hx UTI: Yes - ENDOCRINE Hx Endocrine Disorders: Yes Hx Diabetes: Yes - MUSCULOSKELETAL Hx Musculoskeletal Disorders: Yes Hx Arthritis: Yes (OSTEOARTHRITIS, and RA) Hx Fibromyalgia: Yes Hx Osteoporosis: Yes Comment:: left shoulder tear, unable to have surgery due to the arthritis - PSYCH Hx Psych Problems: Yes Hx Anxiety: Yes Hx Depression: Yes - HEMATOLOGY/ONCOLOGY Hx Hematology/Oncology Disorders: Yes Hx Anemia: Yes Family Medical History Any Significant Family History?: Yes Hx Cancer: Father, Grandparents *Cancer Comment: aunt BONE CANCER. colon/brain GRANDFATHER, LUNG CA WITH FATHER *Diabetes Comment: aunt Hx Heart Disease: Grandparents *HTN Comment: uncles H&P Meds/Allergies - Allergies Allergies: Allergies Allergy/AdvReac Type Severity Reaction Status Date / Time Sulfa (Sulfonamide Allergy Intermediate HIVES Verified 07/21/18 13:22 Antibiotics) codeine Allergy Mild VOMITING Verified 07/21/18 13:22 morphine Allergy Mild VOMITING Verified 07/21/18 13:22 aspirin [ASPIRIN] Allergy Unknown GI UPSET Verified 07/21/18 13:22 cephalexin monohydrate Allergy Unknown "BLEEDING Verified 07/21/18 13:22 [From KEFLEX] FROM EARS AND NOSE" strawberry Allergy DIFFICULTY Verified 07/21/18 13:22 BREATHING venom-honey bee Allergy ANAPHYLAXIS Verified 07/21/18 13:22 venom-wasp Allergy ANAPHYLAXIS Verified 07/21/18 13:22 - Active Medications Active Medications: Current Medications Acetaminophen (Tylenol 325mg) 325 mg PO Q6H PRN PRN Reason: PAIN - MILD (1-4) Hydrocodone Bitart/Acetaminophen ([place] 7.5mg/325mg) 1 each PO Q6H PRN PRN Reason: PAIN - SEVERE (8-10) Last Admin: 07/22/18 09:36 Dose: 1 each Albuterol Sulfate (Albuterol Sulfate) 2.5 mg INH RESP.Q4H PRN PRN Reason: DIFFICULTY IN BREATHING Albuterol/Ipratropium (Duoneb) 3 ml INH RESP.Q6H PRN PRN Reason: WHEEZING Apixaban (Eliquis) 5 mg PO BID [facility] Last Admin: 07/22/18 09:32 Dose: 5 mg Dicyclomine HCl (Bentyl) 20 mg PO QID [facility] Last Admin: 07/22/18 09:32 Dose: 20 mg Fluconazole (Diflucan) 150 mg PO ONCE [facility] Stop: 03/16/19 18:01 Fluoxetine HCl (Prozac) 40 mg PO QHS [facility] Last Admin: 07/21/18 21:45 Dose: 40 mg Hydroxychloroquine Sulfate (Plaquenil) 200 mg PO QHS [facility] Hydroxyzine Pamoate (Vistaril) 25 mg PO Q6H [facility] Last Admin: 07/22/18 06:15 Dose: 25 mg Ciprofloxacin Lactate (Cipro) 400 mg in 200 mls @ 200 mls/hr IVPB Q12H [facility] Stop: 07/27/18 06:01 Last Admin: 07/22/18 06:15 Dose: 200 mls/hr Insulin Detemir (Levemir Flextouch) 15 unit SQ QHS [facility] Last Admin: 07/21/18 22:04 Dose: 15 unit Non-Formulary Medication (Pilocarpine Hcl [Pilocarpine Hcl]) 5 mg PO TID PRN PRN Reason: arthritis Nystatin () 5 ml PO QID [facility] Last Admin: 07/22/18 09:35 Dose: 5 ml Ondansetron HCl (Zofran Odt) 4 mg SL Q6HR PRN PRN Reason: NAUSEA/VOMITING Last Admin: 07/21/18 23:25 Dose: 4 mg Pantoprazole Sodium (Protonix) 40 mg PO BID [facility] Last Admin: 07/22/18 09:32 Dose: 40 mg Patient Own Med: Roflumilast ( Daliresp) 500 Mcg 1 each PO DAILY [facility] Prednisone (Prednisone 10mg) 10 mg PO QD [facility] Last Admin: 07/22/18 09:34 Dose: 10 mg Simvastatin (Zocor) 20 mg PO QD [facility] Last Admin: 07/21/18 21:44 Dose: 20 mg Sucralfate (Carafate) 1 g PO QID PRN PRN Reason: ABDOMINAL PAIN Last Admin: 07/22/18 09:37 Dose: 1 g Trazodone HCl (Desyrel) 150 mg PO QHS [facility] Last Admin: 07/21/18 21:45 Dose: 150 mg Verapamil HCl (Calan Sr) 120 mg PO QHS [facility] Last Admin: 07/21/18 21:44 Dose: 120 mg Physical Exam - Vital Signs Vital Signs: Vital Signs - Last 24 Hrs Temp Pulse Pulse Resp BP BP Pulse Ox 07/22/18 10:00 97.5 F L 60 16 112/69 98 07/22/18 09:59 60 14 98 07/22/18 05:07 97.9 F 60 20 119/67 97 07/22/18 02:00 98.3 F 59 L 20 105/61 97 07/21/18 21:49 98.0 F 68 20 122/73 97 07/21/18 17:40 16 07/21/18 17:24 97.7 F 83 17 151/77 95 07/21/18 16:56 98.7 F 07/21/18 13:30 102.1 F H 88 20 140/78 95 - General General Appearance: Alert, Oriented x3, Cooperative, Mild distress Limitations: No limitations - Head Head exam: Normal inspection - Eye Eye exam: Normal appearance, PERRL, EOMI Pupils: Normal accommodation - ENT ENT exam: Normal exam, Mucous membranes dry, Normal external ear exam, Normal orophraynx Ear exam: Normal external inspection. negative: External canal tenderness Nasal Exam: Normal inspection. negative: Discharge, Sinus tenderness Mouth exam: Normal external inspection, Tongue normal Teeth exam: Normal inspection. negative: Dental caries Throat exam: Normal inspection. negative: Tonsillar erythema, Tonsillar exudate - Neck Neck exam: Normal inspection, Full ROM. negative: Tenderness - Respiratory Respiratory exam: Normal lung sounds bilaterally. negative: Respiratory distress - Cardiovascular Cardiovascular Exam: Regular rate, Normal rhythm, Normal heart sounds - GI/Abdominal GI/Abdominal exam: Soft, Normal bowel sounds. negative: Tenderness - Rectal Rectal exam: Deferred - exam: Deferred - Extremities Extremities exam: Normal inspection, Full ROM, Normal capillary refill. negative: Tenderness - Back Back exam: Reports: Normal inspection, CVA tenderness (L), Full ROM. Denies: Muscle spasm, Rash noted, Tenderness - Neurological Neurological exam: Alert, CN II-XII intact, Normal gait, Oriented X3 - Psychiatric Psychiatric exam: Normal affect, Normal mood - Skin Skin exam: Dry, Intact, Normal color, Warm Results - Labs Result Diagrams: 07/22/18 06:05 07/22/18 06:05 Labs Last 24 Hours: Laboratory Results - last 24 hr 07/21/18 07/21/18 07/21/18 14:35 14:35 14:35 WBC 19.1 H Corrected WBC RBC 5.72 H Hgb 11.0 L Hct 36.1 MCV 63.1 L MCH 19.2 L MCHC 30.5 L RDW 21.6 H Plt Count 471 H MPV 8.7 Gran % Neutrophils % 83.0 H Band Neutrophils % Lymphocytes % Monocytes % Eosinophils % Not Reportable Basophils % Not Reportable Lymphocytes 9.0 L Monocytes 8.0 Basophils Metamyelocytes Myelocytes Promyelocytes Nucleated RBCs Differential Comment Hypersegmented Polys Plasma Cells Other Cell Type Toxic Granulation Dohle Bodies Louann Rods Platelet Estimate RBC Morphology Polychromasia Hypochromasia Poikilocytosis Basophilic Stippling Anisocytosis 2+ Microcytosis 1+ Macrocytosis Spherocytes Sickle Cells Target Cells Tear Drop Cells Ovalocytes Stomatocytes Helmet Cells [place] Bodies [place] Rings [place] Cells Acanthocytes (Spur) Rouleaux Schistocytes Morphology Comment Eosinophil Count Sodium 139 Potassium 3.9 Chloride 98 Carbon Dioxide 24.0 Anion Gap 17.0 H BUN 10 Creatinine 0.5 Estimated GFR > 60 POC Glucose Random Glucose 98 Lactic Acid Cancelled Calcium 8.6 Total Bilirubin 0.30 AST 15 ALT 14 Alkaline Phosphatase 106 H Total Protein 7.7 Albumin 3.7 L Globulin 4.0 Albumin/Globulin Ratio 0.9 L Urine Color Urine Appearance Urine pH Ur Specific [place] Urine Protein Urine Glucose (UA) Urine Ketones Urine Blood Urine Nitrite Urine Bilirubin Urine Urobilinogen Ur Leukocyte Esterase Urine RBC Urine WBC Ur Epithelial Cells Urine Bacteria Urine Mucus Influenza Type A Ag Negative Influenza Type B Ag Negative 07/21/18 07/21/18 07/21/18 14:50 15:35 22:00 WBC Corrected WBC RBC Hgb Hct MCV MCH MCHC RDW Plt Count MPV Gran % Neutrophils % Band Neutrophils % Lymphocytes % Monocytes % Eosinophils % Basophils % Lymphocytes Monocytes Basophils Metamyelocytes Myelocytes Promyelocytes Nucleated RBCs Differential Comment Hypersegmented Polys Plasma Cells Other Cell Type Toxic Granulation Dohle Bodies Louann Rods Platelet Estimate RBC Morphology Polychromasia Hypochromasia Poikilocytosis Basophilic Stippling Anisocytosis Microcytosis Macrocytosis Spherocytes Sickle Cells Target Cells Tear Drop Cells Ovalocytes Stomatocytes Helmet Cells [place] Bodies [place] Rings Maury Cells Acanthocytes (Spur) Rouleaux Schistocytes Morphology Comment Eosinophil Count Sodium Potassium Chloride Carbon Dioxide Anion Gap BUN Creatinine Estimated GFR POC Glucose 97 Random Glucose Lactic Acid 1.2 Calcium Total Bilirubin AST ALT Alkaline Phosphatase Total Protein Albumin Globulin Albumin/Globulin Ratio Urine Color Yellow Urine Appearance Sl cloudy Urine pH 6.0 Ur Specific [place] >= 1.030 Urine Protein 100 mg/dl H Urine Glucose (UA) Negative Urine Ketones 80 mg/dl H Urine Blood Negative Urine Nitrite Negative Urine Bilirubin Moderate H Urine Urobilinogen 2.0 H Ur Leukocyte Esterase Trace H Urine RBC 0 - 2 Urine WBC 10 - 15 Ur Epithelial Cells 3 - 6 Urine Bacteria 2+ Urine Mucus Light Influenza Type A Ag Influenza Type B Ag 07/22/18 07/22/18 07/22/18 06:05 06:05 06:05 WBC 15.0 H Cancelled Corrected WBC Cancelled RBC 5.41 H Cancelled Hgb 10.3 L Cancelled Hct 34.4 L Cancelled MCV 63.6 L Cancelled MCH 19.0 L Cancelled MCHC 29.9 L Cancelled RDW 21.4 H Cancelled Plt Count 437 H Cancelled MPV 9.1 Cancelled Gran % Cancelled Neutrophils % 89.0 H Cancelled Band Neutrophils % 3.0 Cancelled Lymphocytes % Cancelled Monocytes % Cancelled Eosinophils % Not Reportable Cancelled Basophils % Not Reportable Cancelled Lymphocytes 4.0 L Cancelled Monocytes 4.0 Cancelled Basophils Cancelled Metamyelocytes Cancelled Myelocytes Cancelled Promyelocytes Cancelled Nucleated RBCs Cancelled Differential Comment Cancelled Hypersegmented Polys Cancelled Plasma Cells Cancelled Other Cell Type Cancelled Toxic Granulation Cancelled Dohle Bodies Cancelled Louann Rods Cancelled Platelet Estimate Increased Cancelled RBC Morphology Cancelled Polychromasia Cancelled Hypochromasia Cancelled Poikilocytosis Cancelled Basophilic Stippling Cancelled Anisocytosis 2+ Cancelled Microcytosis 1+ Cancelled Macrocytosis Cancelled Spherocytes Cancelled Sickle Cells Cancelled Target Cells Cancelled Tear Drop Cells Cancelled Ovalocytes Cancelled Stomatocytes Cancelled Helmet Cells Cancelled [place] Bodies Cancelled [place] Rings Cancelled [place] Cells Cancelled Acanthocytes (Spur) Cancelled Rouleaux Cancelled Schistocytes Cancelled Morphology Comment Cancelled Eosinophil Count Cancelled Sodium 141 Potassium 3.7 Chloride 102 Carbon Dioxide 26.0 Anion Gap 13.0 BUN 9 Creatinine 0.5 Estimated GFR > 60 POC Glucose Random Glucose 118 H Lactic Acid Calcium 8.3 L Total Bilirubin 0.20 AST 15 ALT 12 Alkaline Phosphatase 109 H Total Protein 7.2 Albumin 3.4 L Globulin 3.8 Albumin/Globulin Ratio 0.9 L Urine Color Urine Appearance Urine pH Ur Specific [place] Urine Protein Urine Glucose (UA) Urine Ketones Urine Blood Urine Nitrite Urine Bilirubin Urine Urobilinogen Ur Leukocyte Esterase Urine RBC Urine WBC Ur Epithelial Cells Urine Bacteria Urine Mucus Influenza Type A Ag Influenza Type B Ag 07/22/18 07:30 WBC Corrected WBC RBC Hgb Hct MCV MCH MCHC RDW Plt Count MPV Gran % Neutrophils % Band Neutrophils % Lymphocytes % Monocytes % Eosinophils % Basophils % Lymphocytes Monocytes Basophils Metamyelocytes Myelocytes Promyelocytes Nucleated RBCs Differential Comment Hypersegmented Polys Plasma Cells Other Cell Type Toxic Granulation Dohle Bodies Louann Rods Platelet Estimate RBC Morphology Polychromasia Hypochromasia Poikilocytosis Basophilic Stippling Anisocytosis Microcytosis Macrocytosis Spherocytes Sickle Cells Target Cells Tear Drop Cells Ovalocytes Stomatocytes Helmet Cells [place] Bodies [place] Rings Maury Cells Acanthocytes (Spur) Rouleaux Schistocytes Morphology Comment Eosinophil Count Sodium Potassium Chloride Carbon Dioxide Anion Gap BUN Creatinine Estimated GFR POC Glucose Cancelled Random Glucose Lactic Acid Calcium Total Bilirubin AST ALT Alkaline Phosphatase Total Protein Albumin Globulin Albumin/Globulin Ratio Urine Color Urine Appearance Urine pH Ur Specific [place] Urine Protein Urine Glucose (UA) Urine Ketones Urine Blood Urine Nitrite Urine Bilirubin Urine Urobilinogen Ur Leukocyte Esterase Urine RBC Urine WBC Ur Epithelial Cells Urine Bacteria Urine Mucus Influenza Type A Ag Influenza Type B Ag VTE H&P Assessment - Risk for VTE Risk for VTE: Yes Risk Level: Moderate Risk Assessment Date: 07/22/18 Risk Assessment Time: 12:00 VTE Orders Placed or Will Be Placed: Yes Plan - Inpatient Certification Inpatient Certification: Admit to inpatient care: Based on my medical assessment, after consideration of patient's risk factors (age, co-morbidities and patient presenting symptoms and acuity), I expect that this patient will remain in the hospital greater than or equal to two midnights and that the services needed warrant inpatient care because: Patient Risk Factors: [] Estimated length of stay: [] The patient may reasonably be expected to be discharged or transferred to a hospital within 96 hours after admission to [facility]. Services needed: [] Post hospital care (if known): [] I certify that my determination is in accordance with my understanding of Medicare requirements for reasonable and necessary inpatient services. - Detailed Diagnosis and Plan (1) Weakness Current Visit: Yes Status: Acute Base Code: R53.1 - WEAKNESS Comment: 07/22 -U/A = +UTI -Cipro 400mg IV Q12 -CT of ABD orderd for questionable Pyelonephritis -CXR unremarkable -Hx of PE, continue home dose of Eliquis 5mg PO BID -Contine other home medications (2) UTI (urinary tract infection) Current Visit: Yes Status: Acute Qualifiers: Urinary tract infection type: acute cystitis Hematuria presence: without hematuria Qualified Code(s): N30.00 - Acute cystitis without hematuria Base Code: N39.0 - URINARY TRACT INFECTION, SITE NOT SPECIFIED Comment: -U/A: Trace Leukocytes, WBC 10-15, Bacteria 2+ -Continue Cipro 400mg IV q. 12 hours -Ordered CT of abdomen (3) Bronchitis Current Visit: Yes Status: Acute Base Code: J40 - BRONCHITIS, NOT SPECIFIED ACUTE OR CHRONIC Comment: 07/22/18 -CXR unremarkable -Bilateral wheezing noted -Continue home medications (Incruse Ellipta, Duoneb, Daliresp and Prednisone 10mg) (4) Do not resuscitate status Current Visit: Yes Status: Acute Base Code: Z66 - DO NOT RESUSCITATE Comment: 07/22/18 -Full code status ordered in ED, pt requests to be a DNR -DNR paperwork signed and bracelet applied (5) Thrush, oral Current Visit: Yes Status: Acute Base Code: B37.0 - CANDIDAL STOMATITIS Comment: 07/22/18 -Nystatin 150mg x 1 in ED -Continue Nystatin swish and spit 5ml QID (6) DVT prophylaxis Current Visit: Yes Status: Acute Base Code: [id number] - Comment: 07/22/18 -Moderate risk d/t hx of DVT/PE, decreased mobility, weight and COPD -Continue home dose of Eliquis 5mg BID
[2018-07-22] MEDS: SIMVASTATIN 20 MG TABLET PO SCH (18:37)
[2018-07-22] MEDS: LEVEMIR FLEXTOUCH 100 UNIT/ML INSULIN PEN SQ SCH (22:23)
[2018-07-22] MEDS: VERAPAMIL ER 120 MG TABLET PO SCH (22:25)
[2018-07-22] MEDS: FLUOXETINE HCL 20 MG CAPSULE PO SCH (22:26)
[2018-07-22] MEDS: TRAZODONE 50 MG TABLET PO SCH (22:26)
[2018-07-23] MEDS: HYDROXYZINE PAMOATE 25 MG CAPSULE PO SCH (06:54)
[2018-07-23] MEDS: CIPROFLOXACIN LACTATE/D5W 400 MG/200 ML BAG IVPB SCH (06:55)
[2018-07-23] MEDS: NYSTATIN 100,000 UNITS/ML 5ML CUP PO SCH ×2 (07:06→09:29)
[2018-07-23] MEDS: HYDROCODONE/APAP 7.5/325MG TABLET PO PRN ×2 (07:06→12:00)
[2018-07-23] MEDS: DICYCLOMINE HCL 10 MG CAPSULE PO SCH (09:25)
[2018-07-23] MEDS: PANTOPRAZOLE SODIUM 40 MG TABLET PO SCH (09:27)
[2018-07-23] MEDS: APIXABAN 5MG TABLET PO SCH (09:27)
[2018-07-23] MEDS: UMECLIDINIUM BROMIDE (INCRUSE) 62.5MCG IH SCH (09:32)
[2018-07-23] MEDS: BREO (FLUTICASONE/VILANTEROL) 200MCG/25MCG INHALER INH SCH (09:32)
[2018-07-23 09:59] LABS: HEMATOCRIT 33.8 % (35.0-47.0); HEMOGLOBIN 9.9 gm/dl (11.6-16.0); MEAN CELL VOLUME 64.6 fl (81-97); MEAN CORPUSCULAR HEMOGLOBIN 18.9 pg (27-33); MEAN CORPUSCULAR HGB CONC 29.3 g/dl (32-36); MEAN PLATELET VOLUME 8.9 fl (7.4-10.4); PLATELET COUNT 497 K/uL (130-400); RED BLOOD COUNT 5.23 M/uL (3.80-5.40); RED CELL DISTRIBUTION WIDTH 21.2 % (11.5-14.5); WHITE BLOOD COUNT W/O DIFF 10.7 K/uL (4.2-12.2)
[2018-07-23 10:23] LABS: ALB/GLOB RATIO 0.9 (1.1-1.8); ALBUMIN 3.2 g/dL (4.0-5.0); ALKALINE PHOSPHATASE 85 U/L (35-104); ALT/SGPT 9 U/L (<33); AST/SGOT 8 U/L (10.0-35.0); BILIRUBIN,TOTAL < 0.20 mg/dL (0.2-1.0); BLOOD UREA NITROGEN 8 mg/dL (6-20); CREATININE 0.5 mg/dL (0.5-0.9); EST GLOMERULAR FILTRATION RATE > 60 mL/min; GLUCOSE,RANDOM 91 mg/dL (74-109); TOTAL PROTEIN 6.7 g/dL (6.6-8.7)
--- NOTE | 2018-07-23 12:40 | Discharge Summary ---
Providers Discharge Summary Date: 07/23/18 Date of admission: 07/21/18 17:05 Attending physician: KARRI FREEMAN Primary care physician: KARRI FREEMAN Physical Exam - Vital Signs Vital Signs: Vital Signs - Last 24 Hrs Temp Pulse Pulse Resp BP BP Pulse Ox 07/23/18 09:39 70 18 98 07/23/18 02:00 97.4 F L 74 18 150/80 97 07/22/18 22:00 97.7 F 65 18 116/70 07/22/18 18:00 97.9 F 71 16 117/73 96 07/22/18 16:01 98.0 F 109/51 07/22/18 14:00 98.0 F 59 L 15 109/51 97 - General General Appearance: Alert, Oriented x3, Cooperative, No acute distress Limitations: No limitations - Head Head exam: Normal inspection - Eye Eye exam: Normal appearance - ENT ENT exam: Normal exam Ear exam: Normal external inspection Nasal Exam: Normal inspection Mouth exam: Normal external inspection Teeth exam: Dental caries - Neck Neck exam: Normal inspection. negative: Tenderness - Respiratory Respiratory exam: Normal lung sounds bilaterally. negative: Respiratory distress - Cardiovascular Cardiovascular Exam: Regular rate, Normal rhythm, Normal heart sounds - GI/Abdominal GI/Abdominal exam: Soft, Normal bowel sounds. negative: Tenderness - Rectal Rectal exam: Deferred - exam: Deferred. negative: Adnexal tenderness (L), Adnexal tenderness (R) - Extremities Extremities exam: Normal inspection, Full ROM, Normal capillary refill. negative: Tenderness - Back Back exam: Reports: Normal inspection, CVA tenderness (L), Full ROM. Denies: Muscle spasm, Rash noted, Tenderness - Neurological Neurological exam: Alert, CN II-XII intact, Normal gait, Oriented X3 - Psychiatric Psychiatric exam: Normal affect, Normal mood - Skin Skin exam: Dry, Intact, Normal color, Warm Hospitalization - Hospitalization Admission Diagnosis: urosepsis, bronchitis, oral rubi - Problem List/Discharge Diagnosis (1) Weakness Status: Acute Base Code: R53.1 - WEAKNESS Comment: 07/23/18 -U/A = +UTI -Cipro 500mg PO BID x 11 doses to complete 14 doses or 7 days worth of treatment -CT of ABD unremarkable -CXR unremarkable -Hx of PE, continue home dose of Eliquis 5mg PO BID -Contine other home medications (2) UTI (urinary tract infection) Status: Acute Discharge Diagnosis: Urinary tract infection type: acute cystitis Hematuria presence: without hematuria Qualified Code(s): N30.00 - Acute cystitis without hematuria Base Code: N39.0 - URINARY TRACT INFECTION, SITE NOT SPECIFIED Comment: -U/A: Trace Leukocytes, WBC 10-15, Bacteria 2+ -Swith IV Cipro to PO, Cipro 500mg PO BID x 11 doses -CT of abdomen = unremarkable (3) Bronchitis Status: Acute Base Code: J40 - BRONCHITIS, NOT SPECIFIED ACUTE OR CHRONIC Comment: 07/23/18 -CXR unremarkable -Bilateral wheezing continued -Takes daily Prednisone per Pulm. will increase by 10mg x 5 days (4) Do not resuscitate status Status: Acute Base Code: Z66 - DO NOT RESUSCITATE Comment: 07/23/18 -Full code status ordered in ED, pt requests to be a DNR -DNR paperwork signed and bracelet applied (5) Thrush, oral Status: Acute Base Code: B37.0 - CANDIDAL STOMATITIS Comment: 07/23/18 -Nystatin 150mg x 1 in ED -Continue Nystatin swish and spit 5ml QID (6) DVT prophylaxis Status: Acute Base Code: EYP1906 - Comment: 07/23/18 -Moderate risk d/t hx of DVT/PE, decreased mobility, weight and COPD -Continue home dose of Eliquis 5mg BID - Hospitalization Course Disposition: Home, Self-Care Hospital Course: Inge Adkins is a 58 y.o. F who presented to the ED with c/o fever, coughing up green sputum, aches, nausea, shortness of breath and weakness x 1 week. Was so nauseated over the last three days that she went without taking her medications, including her Eliquis. Does have a hx of PE. Has multiple medical conditions for which she reports seeing several specialists. Follows with Dr. Estevan Patton (Pulm.) who has her taking 10mg Prednisone daily for her breathing. She reports that he has her take Cipro daily for 30 days on and then off for 30 days. ED Course Vitals: T 102.1, P 88, R 20, BP 140/78, SpO2 95% on 2.5L O2 WBC 19.1, Neutrophils 83% Influenza Swab Negative U/A: Trace Leukocytes, Urine WBC 10-15, bacteria 2+ CXR: Unremarkable 07/22/18 1200 Sitting up in bed, alert and appropriate. Family members at bedside. Is feeling marginally better since yesterday. Reports left sided flank pain. Nausea has improved. Feeling more "wheezy" than normal. 07/23/18 11:45 Sitting at edge of bed, eating lunch. Reports that she is feeling much better and is "ready to get outta here." States that left sided flank pain has decreased, nausea has improved. Procedures: Imaging and X-Rays 07/21/18 14:10 CHEST 2 VIEWS [RAD] Stat 07/22/18 12:38 ABDOMEN/PELVIS WO CONTRAST [CT] Stat Abnormal Labs: Abnormal Lab Results 07/21/18 07/21/18 07/21/18 Range/Units 14:35 14:35 14:50 WBC 19.1 H (4.2-12.2) K/uL RBC 5.72 H (3.80-5.40) M/uL Hgb 11.0 L (11.6-16.0) gm/dl Hct (35.0-47.0) % MCV 63.1 L (81-97) fl MCH 19.2 L (27-33) pg MCHC 30.5 L (32-36) g/dl RDW 21.6 H (11.5-14.5) % Plt Count 471 H (130-400) K/uL Neutrophils % 83.0 H (47-80) % Lymphocytes 9.0 L (16-45) % Potassium (3.4-4.5) mmol/L Anion Gap 17.0 H (7-16) POC Glucose (70-110) mg/dL Random Glucose (74-109) mg/dL Calcium (8.6-10.0) mg/dL Total Bilirubin (0.2-1.0) mg/dL AST (10.0-35.0) U/L Alkaline Phosphatase 106 H (35-104) U/L Albumin 3.7 L (4.0-5.0) g/dL Albumin/Globulin Ratio 0.9 L (1.1-1.8) Urine Protein 100 mg/dl H (NEGATIVE) Urine Ketones 80 mg/dl H (NEGATIVE) Urine Bilirubin Moderate H (NEGATIVE) Urine Urobilinogen 2.0 H (0.20 - 1.00) E.U./dL Ur Leukocyte Esterase Trace H (NEGATIVE) 07/22/18 07/22/18 07/22/18 Range/Units 06:05 06:05 22:20 WBC 15.0 H (4.2-12.2) K/uL RBC 5.41 H (3.80-5.40) M/uL Hgb 10.3 L (11.6-16.0) gm/dl Hct 34.4 L (35.0-47.0) % MCV 63.6 L (81-97) fl MCH 19.0 L (27-33) pg MCHC 29.9 L (32-36) g/dl RDW 21.4 H (11.5-14.5) % Plt Count 437 H (130-400) K/uL Neutrophils % 89.0 H (47-80) % Lymphocytes 4.0 L (16-45) % Potassium (3.4-4.5) mmol/L Anion Gap (7-16) POC Glucose 112 H (70-110) mg/dL Random Glucose 118 H (74-109) mg/dL Calcium 8.3 L (8.6-10.0) mg/dL Total Bilirubin (0.2-1.0) mg/dL AST (10.0-35.0) U/L Alkaline Phosphatase 109 H (35-104) U/L Albumin 3.4 L (4.0-5.0) g/dL Albumin/Globulin Ratio 0.9 L (1.1-1.8) Urine Protein (NEGATIVE) Urine Ketones (NEGATIVE) Urine Bilirubin (NEGATIVE) Urine Urobilinogen (0.20 - 1.00) E.U./dL Ur Leukocyte Esterase (NEGATIVE) 07/23/18 07/23/18 Range/Units 09:53 09:53 WBC (4.2-12.2) K/uL RBC (3.80-5.40) M/uL Hgb 9.9 L (11.6-16.0) gm/dl Hct 33.8 L (35.0-47.0) % MCV 64.6 L (81-97) fl MCH 18.9 L (27-33) pg MCHC 29.3 L (32-36) g/dl RDW 21.2 H (11.5-14.5) % Plt Count 497 H (130-400) K/uL Neutrophils % (47-80) % Lymphocytes (16-45) % Potassium 3.3 L (3.4-4.5) mmol/L Anion Gap (7-16) POC Glucose (70-110) mg/dL Random Glucose (74-109) mg/dL Calcium 8.2 L (8.6-10.0) mg/dL Total Bilirubin < 0.20 L (0.2-1.0) mg/dL AST 8 L (10.0-35.0) U/L Alkaline Phosphatase (35-104) U/L Albumin 3.2 L (4.0-5.0) g/dL Albumin/Globulin Ratio 0.9 L (1.1-1.8) Urine Protein (NEGATIVE) Urine Ketones (NEGATIVE) Urine Bilirubin (NEGATIVE) Urine Urobilinogen (0.20 - 1.00) E.U./dL Ur Leukocyte Esterase (NEGATIVE) Discharge Medications - Discharge Medications Prescriptions: Ciprofloxacin HCl [Cipro] 500 mg PO Q12HR #11 tablet Fluconazole [Diflucan] 150 mg PO ONCE #3 tab Prednisone [Prednisone 10Mg] 10 mg PO QD 30 Days #5 tab Home Medications: Ambulatory Orders Beclomethasone Dipropionate [Qvar] 2 puff IH BID 04/29/14 [Last Taken 07/21/18] Hydroxychloroquine Sulfate [Plaquenil] 200 mg PO DAILY 12/30/16 [Last Taken ] Albuterol Sulfate [Ventolin Hfa] 1 - 2 puff IH Q4-6HR #1 inhaler 07/29/17 [Last Taken 07/21/18] Budesonide/Formoterol Fumarate [Symbicort 160-4.5 Mcg Inhaler] 2 puff IH BID puff 07/29/17 [Last Taken 07/21/18] Calcium Carbonate [Calcium] 1,200 mg PO DAILY tab 07/29/17 [Last Taken 07/21/18 ] Cholecalciferol (Vitamin D3) [Vitamin D3] 2,000 unit PO DAILY #30 cap 07/29/17 [ Last Taken 07/21/18] Ipratropium/Albuterol Sulfate [Iprat-Albut 0.5-3(2.5) mg/3 ml] 3 ml NEB QID ml 07/29/17 [Last Taken 07/21/18] Roflumilast [Daliresp] 500 mcg PO QD 30 Days #30 tab 07/29/17 [Last Taken ] Tiotropium [place] [Spiriva Respimat] 2.5 mcg IH DAILY 07/29/17 [Last Taken ] Folic Acid 1 mg PO QD 90 Days #90 tab 09/01/17 [Last Taken 07/21/18] Diclofenac Sodium 1 apply TP TID 25 Days #200 gm 04/19/18 [Last Taken 07/21/18] [place] HCl 5 mg PO TID PRN 90 Days #270 tab 04/19/18 [Last Taken 07/21/18] Acetaminophen [Tylenol 325Mg] 325 mg PO Q6H PRN tablet 07/23/18 [Last Taken Unknown] Albuterol Sulfate 0.083% [Neb] [Albuterol Sulfate] 2.5 mg INH RESP.Q4H PRN nebulization solution 07/23/18 [Last Taken Unknown] Ciprofloxacin HCl [Cipro] 500 mg PO Q12HR #11 tablet 07/23/18 [Last Taken Unknown] Fluconazole [Diflucan] 150 mg PO ONCE #3 tab 07/23/18 [Last Taken Unknown] Hydrocodone/APAP 7.5/325Mg [Julian 7.5MG/325Mg] 1 each PO Q6H PRN tab 07/23/18 [ Last Taken Unknown] Ipratropium/Albuterol [Duoneb] 3 ml INH RESP.Q6H PRN ampul.neb 07/23/18 [Last Taken Unknown] Ondansetron [Zofran Odt] 4 mg SL Q6HR PRN tab.rapdis 07/23/18 [Last Taken Unknown] Prednisone [Prednisone 10Mg] 10 mg PO QD 30 Days #5 tab 07/23/18 [Last Taken Unknown] Discharge Plan - Discharge Instructions Instructions: Urinary Tract Infection in Women (DC) Additional Instructions: Follow up with Dr. Freeman within the next week Take Cipro 500mg twice a day until gone Speak with Dr. Mariee as to how he wants you to proceed with his Cipro dosing schedule after you complete this prescription Take an additional 10mg of Prednisone for the next 5 days WITH your daily schedule Diflucan has been ordered, take 1 at the onset of symptoms, may repeat every 72 hours x 2 Quality Measures - Quality Measures Quality Measures: Documentation of Current Medications in Medical Record, Screening for High Blood Pressure and F/U Documented - Current Medications Quality Measure: Measure #130: Documentation of Current Medications Documentation of Current Medications: <Current Medications Documented/Reviewed> [G8427] - Blood Pressure Screening Quality Measure: Screening for High Blood Pressure and Follow-Up Documented Does Patient Have Any of the Following: Active Dx of HTN Blood Pressure Classification: Normal BP Reading Systolic Measurement: 109 Diastolic Measurement: 51 Screening for High Blood Pressure: Patient Exclusion, Hx of HTN [G9744] - Elder Abuse Suspicion Index EASI Reference Information: Nata WALSH, Fransisco C, Nery D, Britt Ortiz.Development and validation of a tool to assist physicians identification of elder abuse: The Elder Abuse Suspicion Index (EASI ). Journal of Elder Abuse and Neglect, 2008; 20 (3): 276-300.
[2018-07-23 14:49] LABS: PLATELET ESTIMATE INCREASED (NORMAL)
[2018-07-23 14:50] LABS: ANISOCYTOSIS 2+; HYPOCHROMIA 1+; MICROCYTOSIS 2+
--- NOTE | 2018-07-24 07:57 | RADIOLOGY REPORT ---
EXAM: CHEST, TWO VIEWS HISTORY: DIFFICULTY IN BREATHING. TECHNIQUE: Frontal and lateral views of the chest were performed. Comparison: 06/16/16. FINDINGS: The heart size is normal. No acute pulmonary disease process. IMPRESSION: UNREMARKABLE CHEST X-RAY. JOB NUMBER: [id number] [facility]TDD
--- NOTE | 2018-07-24 08:05 | CT SCAN REPORT ---
EXAM: CT SCAN OF THE ABDOMEN AND PELVIS HISTORY: PATIENT HAS LEFT FLANK PAIN. TECHNIQUE: Serial axial CT scan of the abdomen and pelvis was performed at 2.5 mm intervals from the dome of the diaphragm down to the pubic symphysis without the use of intravenous or oral contrast. Comparison: CT scan of the chest dated 06/24/16, CT scan of the abdomen and pelvis dated 12/13/13 are provided. FINDINGS: The lung windows of the lung bases demonstrate a cavitary pleural based 10 mm lesion within the left posterior lower lobe. This finding is new with respect to the prior CT scan of the chest. Neoplastic etiology cannot be excluded. CT scan of the chest can be obtained for further evaluation. The visualized heart size and contour is within normal limits. The liver demonstrates diffuse fatty infiltration. No suspicious hepatic lesions are identified. Size and contour of the liver is within normal limits. The spleen, pancreas, and adrenal glands appear unremarkable. Cholecystectomy clips are noted within the right upper quadrant of the abdomen. There is no CT evidence of hydronephrosis or hydroureter. No renal or ureteral calculi are noted. The contour and caliber of the noncontrasted abdominal aorta is within normal limits. There is no CT evidence of retroperitoneal, pelvic or inguinal lymphadenopathy. The bowel gas pattern is nonspecific and nonobstructive. There is no CT evidence of free intraperitoneal air or free intraperitoneal fluid. The urinary bladder is unremarkable. The uterus is absent. IMPRESSION: 1. NO CT EVIDENCE OF AN ACUTE INTRAABDOMINAL PROCESS. 2. DIFFUSE HEPATIC STEATOSIS. JOB NUMBER: [id number] [facility]
== END 2018-07-23 13:04 | disposition home or self-care (01) ==
LOC: ER 12:57 → MEDSURG 17:05
PROVIDERS: ADMIT Internal Medicine; ATTEND Internal Medicine
DX: R53.1 Weakness (principal); N39.0 Urinary tract infection, site not specified; J40 Bronchitis, not specified as acute or chronic; B37.0 Candidal stomatitis; I50.9 Heart failure, unspecified; J44.9 Chronic obstructive pulmonary disease, unspecified; E11.9 Type 2 diabetes mellitus without complications; Z79.4 Long term (current) use of insulin; D64.9 Anemia, unspecified; I95.9 Hypotension, unspecified; K21.9 Gastro-esophageal reflux disease without esophagitis; Z79.01 Long term (current) use of anticoagulants; M19.90 Unspecified osteoarthritis, unspecified site; M06.9 Rheumatoid arthritis, unspecified; M79.7 Fibromyalgia; G62.9 Polyneuropathy, unspecified; K58.9 Irritable bowel syndrome, unspecified; Z66 Do not resuscitate; Z95.811 Presence of heart assist device; Z86.711 Personal history of pulmonary embolism; Z86.718 Personal history of other venous thrombosis and embolism; Z87.891 Personal history of nicotine dependence; Z99.81 Dependence on supplemental oxygen
CPT/HCPCS: 36416; 71046; 74176; 80053; 81001; 82948; 83605; 85027; 87400; 94640; 94760; 96374; 99223; 99239; 99285; J7512

== ENCOUNTER 2019-03-30 10:00 | Emergency (ER) | payer MEDICARE, MEDICAID ==
[2019-03-30 10:13] LABS: URINE APPEARANCE CLEAR; URINE BILIRUBIN SMALL (NEGATIVE); URINE BLOOD LARGE (NEGATIVE); URINE COLOR YELLOW; URINE GLUCOSE (UA) NEGATIVE (NEGATIVE); URINE KETONE TRACE (NEGATIVE); URINE LEUKOCYTE ESTERASE MODERATE (NEGATIVE); URINE NITRITE POSITIVE (NEGATIVE); URINE UROBILINOGEN 0.2 E.U./dL (0.20 - 1.00)
[2019-03-30 10:15] LABS: URINE BACTERIA 2+; URINE EPITHELIAL CELLS 0 - 2 (FEW); URINE RBC 36 - 50 (NONE SEEN); URINE WBC 36 - 50 (0-2/hpf)
[2019-03-30] MEDS ORDERED: 0.9 % SODIUM CHLORIDE 1,000 ML BAG IV ONE (10:55)
[2019-03-30 12:04] LABS: ABSOLUTE NEUTROPHIL COUNT 9.68; HEMATOCRIT 35.1 % (35.0-47.0); HEMOGLOBIN 10.1 gm/dl (11.6-16.0); MEAN CELL VOLUME 64.1 fl (81-97); MEAN CORPUSCULAR HEMOGLOBIN 18.4 pg (27-33); MEAN CORPUSCULAR HGB CONC 28.8 g/dl (32-36); MEAN PLATELET VOLUME 8.5 fl (7.4-10.4); PLATELET COUNT 469 K/uL (130-400); RED BLOOD COUNT 5.48 M/uL (3.80-5.40); RED CELL DISTRIBUTION WIDTH 22.3 % (11.5-14.5); WHITE BLOOD COUNT W/O DIFF 11.7 K/uL (4.2-12.2)
--- NOTE | 2019-03-30 12:16 | Emergency Department Record ---
History of Present Illness - General Chief complaint: Female Urogenital Problem Stated complaint: BLADDER INFECTION Time Seen by Provider: 03/30/19 10:23 Source: Patient Mode of Arrival: Ambulatory Limitations: No limitations - History of Present Illness Initial comments: pt has frequency, urgency, ap, nausea and feels like she has a uti Onset/Timin -: Hour(s) Location: Perineum, Suprapubic Severity: Moderate Severity scale (1-10): 10 Quality: Burning, Stabbing Consistency: Constant Improves with: None Worsens with: Urination Patient : No Associated Symptoms: Dysuria - Related Data Home Medications Medication Instructions Recorded Confirmed Last Taken Loratadine [Allergy Relief] 10 mg PO DAILY 03/30/19 03/30/19 03/30/19 Previous Rx's Medication Instructions Recorded Nitrofurantoin Macrocrystal 100 mg PO BID #10 capsule 03/30/19 [Nitrofurantoin] Phenazopyridine HCl [Pyridium] 200 mg PO TID #6 tab 03/30/19 Allergies Allergy/AdvReac Type Severity Reaction Status Date / Time Sulfa (Sulfonamide Allergy Intermediate HIVES Verified 03/30/19 10:08 Antibiotics) codeine Allergy Mild VOMITING Verified 03/30/19 10:08 morphine Allergy Mild VOMITING Verified 03/30/19 10:08 aspirin [ASPIRIN] Allergy Unknown GI UPSET Verified 03/30/19 10:08 cephalexin monohydrate Allergy Unknown "BLEEDING Verified 03/30/19 10:08 [From KEFLEX] FROM EARS AND NOSE" strawberry Allergy DIFFICULTY Verified 03/30/19 10:08 BREATHING venom-honey bee Allergy ANAPHYLAXIS Verified 03/30/19 10:08 venom-wasp Allergy ANAPHYLAXIS Verified 03/30/19 10:08 Travel Screening - Travel/Exposure Within Last 30 Days Have you traveled within the last 30 days?: No - Travel/Exposure Within Last Year Have you traveled outside the [place] in the last year?: No - Additonal Travel Details Have you been exposed to anyone with a communicable illness?: No - Travel Symptoms Symptom Screening: None Review of Systems Reviewed: No additional complaints except as noted below Constitutional: Reports: As per HPI. Denies: Chills, Fever, Malaise, Night sweats, Weakness, Weight change Eyes: Reports: As per HPI. Denies: Eye discharge, Eye pain, Photophobia, Vision change ENT: Reports: As per HPI. Denies: Congestion, Dental pain, Ear pain, Epistaxis, Hearing loss, Throat pain Respiratory: Reports: As per HPI. Denies: Cough, Dyspnea, Hemoptysis, Stridor, Wheezes Cardiovascular: Reports: As per HPI. Denies: Arrhythmia, Chest pain, Dyspnea on exertion, Edema, Murmurs, Orthopnea, Palpitations, Paroxysmal nocturnal dyspnea, Rheumatic Fever, Syncope Endocrine: Reports: As per HPI. Denies: Fatigue, Heat or cold intolerance, Polydipsia, Polyuria Gastrointestinal: Reports: As per HPI, Abdominal pain. Denies: Constipation, Diarrhea, Hematemesis, Hematochezia, Melena, Nausea, Vomiting Genitourinary: Reports: As per HPI. Denies: Abnormal menses, Discharge, Dyspareunia, Dysuria, Frequency, Hematuria, Incontinence, Retention, Urgency Musculoskeletal: Reports: As per HPI. Denies: Arthralgia, Back pain, Gout, Joint swelling, Myalgia, Neck pain Skin: Reports: As per HPI. Denies: Bruising, Change in color, Change in hair/nails, Lesions, Pruritus, Rash Neurological: Reports: As per HPI. Denies: Abnormal gait, Confusion, Headache, Numbness, Paresthesias, Seizure, Tingling, Tremors, Vertigo, Weakness Psychiatric: Reports: As per HPI. Denies: Anxiety, Auditory hallucinations, Depression, Homicidal thoughts, Suicidal thoughts, Visual hallucinations Hematological/Lymphatic: Reports: As per HPI. Denies: Anemia, Blood Clots, Easy bleeding, Easy bruising, Swollen glands Past Medical History - SOCIAL HISTORY Smoking Status: Former smoker Alcohol Use: None Drug Use: None - RESPIRATORY Hx Respiratory Disorders: Yes Hx Asthma: Yes Hx Bronchitis: Yes Hx COPD: Yes Hx Pneumonia: Yes Comment:: home o2 at 2.5/24 hours, HX PE - CARDIOVASCULAR Hx Cardio Disorders: Yes Hx Abnormal EKG: No Hx Cardiac Cath: Yes Hx Chest Pain: No Hx CHF: Yes (2017) Hx Deep Vein Thrombosis: Yes (right leg and hx of PE) Hx Edema: Yes Hx Hypotension: Yes Hx Irregular Heartbeat: No Hx Palpitations: Yes Comment:: "HIGH HEART RATE" - NEURO Hx Neuro Disorders: Yes Hx Headaches: Yes Hx Neuropathy: Yes (bilateral feet/hands) Hx Weakness: Yes (legs) - GI Hx GI Disorders: Yes Hx Reflux: Yes Hx Irritable Bowel: Yes Hx Nausea/Vomiting: Yes (nausea all the time) Hx Wt Loss/Wt Gain: Yes (gains weight) Hx of Polyps: Yes Comment:: diarrhea - Hx Genitourinary Disorders: Yes Hx UTI: Yes - ENDOCRINE Hx Endocrine Disorders: Yes Hx Diabetes: Yes - MUSCULOSKELETAL Hx Musculoskeletal Disorders: Yes Hx Arthritis: Yes (OSTEOARTHRITIS, and RA) Hx Fibromyalgia: Yes Hx Osteoporosis: Yes Comment:: left shoulder tear, unable to have surgery due to the arthritis - PSYCH Hx Psych Problems: Yes Hx Anxiety: Yes Hx Depression: Yes - HEMATOLOGY/ONCOLOGY Hx Hematology/Oncology Disorders: Yes Hx Anemia: Yes Family Medical History Any Significant Family History?: Yes Hx Cancer: Father, Grandparents *Cancer Comment: aunt BONE CANCER. colon/brain GRANDFATHER, LUNG CA WITH FATHER *Diabetes Comment: aunt Hx Heart Disease: Grandparents *HTN Comment: uncles Physical Exam - General General Appearance: Alert, Oriented x3, Cooperative, Mild distress - Head Head exam: Normal inspection - Eye Eye exam: Normal appearance, PERRL, EOMI Pupils: Normal accommodation - ENT ENT exam: Normal exam, Mucous membranes moist, Normal external ear exam, Normal orophraynx Ear exam: Normal external inspection. negative: External canal tenderness Nasal Exam: Normal inspection. negative: Discharge, Sinus tenderness Mouth exam: Normal external inspection, Tongue normal Teeth exam: Normal inspection. negative: Dental caries Throat exam: Normal inspection. negative: Tonsillar erythema, Tonsillar exudate - Neck Neck exam: Normal inspection, Full ROM. negative: Tenderness - Respiratory Respiratory exam: Normal lung sounds bilaterally. negative: Respiratory distres s - Cardiovascular Cardiovascular Exam: Regular rate, Normal rhythm, Normal heart sounds - GI/Abdominal GI/Abdominal exam: Soft, Normal bowel sounds, Tenderness - Rectal Rectal exam: Deferred - exam: Deferred - Extremities Extremities exam: Normal inspection, Full ROM, Normal capillary refill. neg ative: Tenderness - Back Back exam: Reports: Normal inspection, Full ROM. Denies: Muscle spasm, Rash noted, Tenderness - Neurological Neurological exam: Alert, CN II-XII intact, Normal gait, Oriented X3 - Psychiatric Psychiatric exam: Normal affect, Normal mood - Skin Skin exam: Dry, Intact, Normal color, Warm Course Vital Signs 03/30/19 10:24 Temperature 97.9 F Pulse Rate 85 Respiratory 20 Rate Blood Pressure 134/97 Pulse Ox 98 - Reevaluation(s) Reevaluation #1: 03/30/19 13:[address] neg Medical Decision Making - Lab Data Result diagrams: 03/30/19 12:00 03/30/19 12:00 Lab Results 03/30/19 03/30/19 Range/Units 10:00 12:00 WBC 11.7 (4.2-12.2) K/uL RBC 5.48 H (3.80-5.40) M/uL Hgb 10.1 L (11.6-16.0) gm/dl Hct 35.1 (35.0-47.0) % MCV 64.1 L (81-97) fl MCH 18.4 L (27-33) pg MCHC 28.8 L (32-36) g/dl RDW 22.3 H (11.5-14.5) % Plt Count 469 H (130-400) K/uL MPV 8.5 (7.4-10.4) fl Eosinophils % Not Reportable Basophils % Not Reportable Absolute Neutrophils 9.68 Urine Color Yellow Urine Appearance Clear Urine pH 5.5 (5.0-8.0) Ur Specific [place] >= 1.030 (1.002-1.030) Urine Protein 100 mg/dl H (NEGATIVE) Urine Glucose (UA) Negative (NEGATIVE) Urine Ketones Trace H (NEGATIVE) Urine Blood Large H (NEGATIVE) Urine Nitrite Positive H (NEGATIVE) Urine Bilirubin Small H (NEGATIVE) Urine Urobilinogen 0.2 (0.20 - 1.00) E.U./dL Ur Leukocyte Esterase Moderate H (NEGATIVE) Urine RBC 36 - 50 (NONE SEEN) Urine WBC 36 - 50 (0-2/hpf) Ur Epithelial Cells 0 - 2 (FEW) Urine Bacteria 2+ Disposition Disposition: Discharge Clinical Impression: UTI (urinary tract infection) Qualifiers: Urinary tract infection type: acute cystitis Hematuria presence: with hematuria Qualified Code(s): N30.01 - Acute cystitis with hematuria Disposition: Home, Self-Care Condition: (1) Good Instructions: Urinary Tract Infection in Women (ED) Additional Instructions: follow up with family doctor. return sooner if worse Prescriptions: Nitrofurantoin Macrocrystal [Nitrofurantoin] 100 mg PO BID #10 capsule Phenazopyridine HCl [Pyridium] 200 mg PO TID #6 tab Quality - Quality Measures Quality Measures: N/A - Blood Pressure Screening Does Patient Have Any of the Following: No Blood Pressure Classification: Hypertensive Reading Systolic Measurement: 134 Diastolic Measurement: 97 Screening for High Blood Pressure: Patient Exclusion, Hx of HTN [G9744]
[2019-03-30 12:20] LABS: BLOOD UREA NITROGEN 8 mg/dL (6-20); CREATININE 0.6 mg/dL (0.5-0.9); EST GLOMERULAR FILTRATION RATE > 60 mL/min
[2019-03-30 12:21] LABS: LIPASE 25 U/L (13-60); TOTAL PROTEIN 6.8 g/dL (6.6-8.7)
[2019-03-30 12:23] LABS: GLUCOSE,RANDOM 91 mg/dL (74-109)
[2019-03-30 12:25] LABS: ALB/GLOB RATIO 1.3 (1.1-1.8); ALBUMIN 3.9 g/dL (4.0-5.0); ALT/SGPT 6 U/L (<33); AST/SGOT 11 U/L (10.0-35.0)
[2019-03-30 12:26] LABS: ALKALINE PHOSPHATASE 95 U/L (35-104)
--- NOTE | 2019-03-30 12:59 | CT SCAN REPORT ---
EXAMINATION: CT Abdomen and Pelvis without IV Contrast EXAM DATE: 03/30/2019 12:29 PM TECHNIQUE: Standard protocol CT imaging of the abdomen and pelvis was performed without intravenous c ontrast. INDICATION: Gross hematuria with flank and groin pain. Dysuria. COMPARISON: CT abdomen and pelvis noncontrast 07/22/2018. The current CT meter reader inspector radiograph does not disclose any acute abnormality. CT ABDOMEN AND PELVIS FINDINGS: Lung Bases: Scans through the lung bases demonstrate findings compatible with atelectasis or scarring . There are no pleural or pericardial effusions. Hepatobiliary: The liver has a normal size with a smooth surface. Prior cholecystectomy without bili maurisio dilatation. Pancreas: The pancreas is normal. Spleen: The spleen is not enlarged. Adrenals: The adrenal glands are normal. Kidneys, Ureters, & Bladder: There are no radiopaque renal, ureteral or bladder stones and no obstruc tive uropathy. The kidneys have a normal noncontrast appearance. The urinary bladder is mostly nondis tended without specific abnormality seen. There may be early infiltration of the perivesical fat whic h may relate to underlying cystitis. Gastrointestinal: No acute colonic abnormality is seen. There are no CT findings of acute appendiciti s. No acute small bowel abnormality is seen. The stomach appears normal. Reproductive Organs: There has been prior hysterectomy. There is no pelvic mass or free fluid. Lymphatic System: There is no mesenteric, retroperitoneal or pelvic lymphadenopathy. Vasculature: Normal caliber abdominal aorta Peritoneum: There is no abdominal fluid or free air. Abdominal wall & Musculoskeletal: No acute abdominal wall abnormality is seen. Images at bone window demonstrate degenerative features without acute abnormality seen. There are chronic appearing changes involving the posterior aspect of the right ischium. Assessment of the solid organs, soft tissues, and vascular structures is overall limited on noncontra st imaging, IMPRESSION: No radiopaque renal, ureteral or bladder stones and no obstructive uropathy. The kidneys have a normal noncontrast appearance. Findings which may represent underlying cystitis. If there are persistent/unexplained symptoms further evaluation with pre and postcontrast CT urograph y may be appropriate. Dictated by: Gino Ball MD on 03/30/2019 12:44 PM. .
== END 2019-03-30 13:40 | disposition home or self-care (01) ==
LOC: ER 10:00
DX: N30.01 Acute cystitis with hematuria (principal); R11.0 Nausea; I10 Essential (primary) hypertension; Z87.891 Personal history of nicotine dependence
CPT/HCPCS: 74176; 80053; 81001; 83690; 85027; 99284; J7030